=== PATIENT | male | born 1965 | race Caucasian/White ===

== ENCOUNTER 2016-09-07 14:31 | Emergency (ER) | payer OTHER ==
[~2016-09-07] VITALS: Ht 167.6 cm; Wt 90.0 kg
[~2016-09-07 14:31] MED LIST: LAMO100T PO; LAMO25TA PO
[2016-09-07 14:39] VITALS: BP 132/75; PULSE 74; RESP 18; TEMP 98.1; O2SAT 99
--- NOTE | 2016-09-07 14:46 | PD ---
HPI Chief Complaint: Pain: Acute or Chronic Time Seen by Provider: 14:46 Travel History International Travel<30 days: No Contact w/Intl Traveler<30days: No Traveled to known affect area: No History of Present Illness HPI 50-year-old male presents to emergency department for evaluation a right hand injury sustained after a trip and fall at school. Patient reports right fourth and fifth digit pain. He is right handed. Patient states the pain is constant , throbbing. Denies any alterations in sensation. Unable to flex the right fifth digit. Did not strike his head or lose consciousness. No other symptoms to report. PFSH Past Medical History Hx Anticoagulant Therapy: No Arthritis: No Asthma: No Blood Disorders: No Heart Rhythm Problems: Yes (FIRST DEGREE HEART BLOCK) Cancer: No Cardiovascular Problems: No Chemotherapy: No Chest Pain: Yes COPD: No Cerebrovascular Accident: No Diabetes: No Diminished Hearing: No Endocrine: No Genitourinary: No Headaches: Yes Hypertension: Yes Immune Disorder: No Musculoskeletal: Yes (left arm contracted) Neurologic: Yes (HYDROCEPHALUS) Psychiatric: No Reproductive: No Respiratory: No Radiation Therapy: No Seizures: Yes Sleep Apnea: No Past Surgical History Abdominal Surgery: No AICD: No Arteriovenous Shunt: No Body Medical Devices: VAGAL NERVE STIMULATOR Cardiac Surgery: Yes Genitourinary Surgery: No Gynecologic Surgery: No Hysterectomy: No Insulin Pump: No Joint Replacement: No Neurologic Surgery: Yes ([address] PRODUCTION MANAGER SHUNT, jun 2005-VAGUS NERVE STIMULATOR) Pacemaker: No Thoracic Surgery: No Other Surgery: Yes ([address] PRODUCTION MANAGER SHUNT 1980, HEEL CORD LENGHENING) Social History Alcohol Use: No Tobacco Use: No Substance Use: No Allergies-Medications (Allergen,Severity, Reaction): Coded Allergies: Cat Dander (Verified Adverse Reaction, Mild, Sneezing, 09/07/16) Dust (Verified Adverse Reaction, Mild, Sneezing, 09/07/16) Reported Meds & Prescriptions Reported Meds & Active Scripts Active Ibuprofen 600 Mg Tab 600 Mg PO Q8HR PRN Reported Tegretol (Carbamazepine) 200 Mg Tab 200 Mg PO BID Lamictal (Lamotrigine) 200 Mg Tab 200 Mg PO BID Review of Systems Except as stated in HPI: all other systems reviewed are Neg Physical Exam Narrative GENERAL: Well-nourished, male patient, ambulatory and in no acute distress SKIN: Warm and dry. HEAD: Normocephalic. EYES: No scleral icterus. No injection or drainage. NECK: Supple, trachea midline. No JVD or lymphadenopathy. CARDIOVASCULAR: Regular rate and rhythm without murmurs, gallops, or rubs. RESPIRATORY: Breath sounds equal bilaterally. No accessory muscle use. MUSCULOSKELETAL: No cyanosis. Moderate edema of the right fourth finger over the PIP. There is an obvious deformity of the right fifth PIP joint. Cap refill remains less than 3 seconds for the affected digits. 2. discrimination is intact distal affected digits. Data Data Last Documented VS Vital Signs Date Time Temp Pulse Resp B/P Pulse Ox O2 Delivery O2 Flow Rate FiO2 09/07/16 14:39 98.1 74 18 132/75 99 Orders Hand, Complete ([id number]) (09/07/16 ) Ibuprofen (Motrin) (09/07/16 15:00) Lidocaine 2% Inj (Xylocaine 2% Inj) (09/07/16 15:00) Bupivacaine Pf 0.5% Inj (Marcaine Pf 0.5 (09/07/16 15:00) Finger ([id number]) (09/07/16 ) Splint Or Brace Apply/Monitor (09/07/16 16:39) Finger Splint (09/07/16 ) MDM Medical Decision Making Medical Screen Exam Complete: Yes Emergency Medical Condition: Yes Medical Record Reviewed: Yes Differential Diagnosis Fracture versus dislocation versus contusion versus sprain Narrative Course 50-year-old male presents to the emergency department for evaluation of right fourth and fifth digit pain. There is bruising at the PIP of the right fourth digit. This is likely a finger sprain. Hand x-ray shows a dislocation of the right PIP. Last Impressions Hand X-Ray 09/07/16 0000 Signed Impressions: Service Date/Time: August 15:06 - CONCLUSION: Fifth finger PIP joint dislocation Jani Rasheed MD Finger X-Ray 09/07/16 0000 Signed Impressions: Service Date/Time: August 16:20 - CONCLUSION: Status post reduction of dislocated PIP joint. Nirav Momin MD Digital block of the right fifth digit is completely and reduction is successful. Patient is placed in a finger splint. Care. He Agrees to Return Immediately with Any Acute Worsening Symptoms. Procedures Procedure Narrative Verbal consent is obtained prior to procedure. The base of the finger was prepped with Betadine. 2% lidocaine without epinephrine and 0.5% bupivacaine was mixed at a 11 ratio with a total of 3 mL injected to the base of the right fifth digit. Anesthesia was achieved and the finger remained neurovascularly intact. Traction was placed on the distal finger and PIP was reduced without difficulty. Patient tolerated well. Diagnosis Primary Impression: Dislocation, finger, interphalangeal joint Qualified Code: S63.289A - Dislocation, finger, interphalangeal joint, initial encounter Additional Impressions: Finger sprain Qualified Code: S63.634A - Sprain of interphalangeal joint of right ring finger, initial encounter Injury of right hand Qualified Code: S69.91XA - Injury of right hand, initial encounter Referrals: Hand Surgeon Primary Care Physician Patient Instructions: Finger Dislocation (ED), General Instructions Additional Instructions: Ice and elevate to reduce pain Brace for support. He may take it off to shower Follow-up with a hand specialist Return immediately to the emergency department with any acute worsening symptoms Med/Other Pt SpecificInfo: Prescription(s) given Scripts Ibuprofen 600 Mg [id number] Mg PO Q8HR PRN (PAIN) #30 TAB Ref 0 Prov:Willow Quarles 09/07/16 Disposition: 01 DISCHARGE HOME Condition: Stable Willow Quarles Sep 07, 2016 14:46
[2016-09-07] MEDS ORDERED: LAMI200T PO (14:49)
[2016-09-07] MEDS ORDERED: TEGR200T PO (14:49)
[2016-09-07] MEDS ORDERED: IBUPROFEN 800 MG TAB PO ONE (15:00)
[2016-09-07] MEDS ORDERED: BUPIVACAINE HCL PF 0.5% 10 ML VIAL INFIL ONE (15:00)
[2016-09-07] MEDS ORDERED: LIDOCAINE HCL 2% 20 ML VIAL INFIL ONE (15:00)
[2016-09-07] MEDS ORDERED: IBUP-232 PO (15:59)
--- NOTE | 2016-09-07 16:14 | RADRPT ---
EXAM DATE/TIME: 09/07/2016 15:06 [facility] COMPARISON: No previous studies available for comparison. INDICATIONS : Right hand pain, fell down stairs today. MEDICAL HISTORY : Hypertension. SURGICAL HISTORY : Barber Stylist shunt, nerve stimulator ENCOUNTER: Initial ACUITY: 1 day PAIN SCORE: 8/10 LOCATION: Right Hand. FINDINGS: The fifth finger PIP joint is dislocated. No definite fracture is appreciated. The middle phalanx is displaced dorsally relative to the proximal phalanx with slight bayonet apposition also present. The hand is otherwise intact. CONCLUSION: Fifth finger PIP joint dislocation Jani Rasheed MD on September 07, 2016 at 16:11 Board Certified Radiologist. This report was verified electronically.
--- NOTE | 2016-09-07 17:05 | RADRPT ---
EXAM DATE/TIME: 09/07/2016 16:20 [facility] COMPARISON: HAND RIGHT COMPLETE ([id number]), September 07, 2016, 15:06. INDICATIONS : Post reduction. MEDICAL HISTORY : Hypertension. seizure disorder. SURGICAL HISTORY : vp customer development shunt ENCOUNTER: Subsequent ACUITY: 1 day PAIN SCORE: 6/10 LOCATION: Right fifth digit FINDINGS: Two-view examination of the 5th digit demonstrates realignment of the PIP joint. No fracture seen. No radiopaque foreign bodies. CONCLUSION: Status post reduction of dislocated PIP joint. Nirav Momin MD on September 07, 2016 at 17:03 Board Certified Radiologist. This report was verified electronically.
== END 2016-09-07 16:48 | disposition home or self-care (01) ==
LOC: NETRI 14:31
DX: S63.290A Dislocation of distal interphalangeal joint of right index finger, initial encounter (principal); S63.634A Sprain of interphalangeal joint of right ring finger, initial encounter; W10.9XXA Fall (on) (from) unspecified stairs and steps, initial encounter; Y93.9 Activity, unspecified; Y92.219 Unspecified school as the place of occurrence of the external cause; I10 Essential (primary) hypertension
CPT/HCPCS: 26770; 73130; 73140

== ENCOUNTER 2017-02-18 04:49 | Emergency (ER) | payer OTHER ==
[~2017-02-18] VITALS: Ht 167.6 cm; Wt 76.5 kg
[~2017-02-18 04:49] MED LIST changes: +IBUP-232 PO; +LAMI200T PO; -LAMO100T PO; -LAMO25TA PO; +TEGR200T PO
[2017-02-18 04:51] VITALS: BP 147/92; PULSE 99; RESP 18; TEMP 98.9; O2SAT 97
[2017-02-18] MEDS ORDERED: LAMO25 PO (05:07)
--- NOTE | 2017-02-18 05:11 | PD ---
HPI Chief Complaint: Fall Time Seen by Provider: 05:03 Travel History International Travel<30 days: No Contact w/Intl Traveler<30days: No Traveled to known affect area: No History of Present Illness HPI 51-year-old male with hydrocephalus with CHEMISTRY LECTURER shunt and seizure disorder presents to the emergency department from home by EMS transport for evaluation of head injury. According the patient just prior to arrival to the emergency department he had a trip and fall hitting the back of his head. Patient reports episode occurred approximately an hour prior to arrival to the emergency prior. Patient states he does not think he had loss of consciousness he wishes having difficulty finding his cell phone ordered and call 911. Patient does complain of posterior neck pain. Patient does not report any new upper or lower extremity numbness tingling or weakness. Patient has issues with gait at baseline and no new gait disturbance. Patient states he was up out of bed to take his medications which include Lamictal and tegretol. Patient does not report any medication noncompliance. Patient denies other injuries. Patient denies having seizure. PFSH Past Medical History Narrative Medical First-degree AV block vagal nerve stimulator CHEMISTRY LECTURER shunt hydrocephalus seizure disorder headaches hypertension Hx Anticoagulant Therapy: No Arthritis: No Asthma: No Blood Disorders: No Heart Rhythm Problems: Yes (FIRST DEGREE HEART BLOCK) Cancer: No Cardiovascular Problems: No Chemotherapy: No Chest Pain: Yes COPD: No Cerebrovascular Accident: No Diabetes: No Diminished Hearing: No Endocrine: No Genitourinary: No Headaches: Yes Hypertension: Yes Immune Disorder: No Musculoskeletal: Yes (left arm contracted) Neurologic: Yes (HYDROCEPHALUS) Psychiatric: No Reproductive: No Respiratory: No Radiation Therapy: No Seizures: Yes Sleep Apnea: No Past Surgical History Abdominal Surgery: No AICD: No Arteriovenous Shunt: No Body Medical Devices: VAGAL NERVE STIMULATOR Cardiac Surgery: Yes Genitourinary Surgery: No Gynecologic Surgery: No Hysterectomy: No Insulin Pump: No Joint Replacement: No Neurologic Surgery: Yes (2005 CHEMISTRY LECTURER SHUNT, jun 2005-VAGUS NERVE STIMULATOR) Pacemaker: No Thoracic Surgery: No Other Surgery: Yes (CHEMISTRY LECTURER SHUNT 1980, HEEL CORD LENGHENING) Social History Alcohol Use: No Tobacco Use: No Substance Use: No Allergies-Medications (Allergen,Severity, Reaction): Coded Allergies: Cat Dander (Verified Adverse Reaction, Mild, Sneezing, 02/18/17) Dust (Verified Adverse Reaction, Mild, Sneezing, 02/18/17) Reported Meds & Prescriptions Reported Meds & Active Scripts Active Reported Lamictal (Lamotrigine) 25 Mg Tab 50 Mg PO DAILY@0600 Lamictal (Lamotrigine) 200 Mg Tab 200 Mg PO BID Review of Systems Except as stated in HPI: all other systems reviewed are Neg General / Constitutional: No: Fever, Chills Eyes: No: Visual changes HENT: Positive: Headaches, Neck Pain, No: Lightheadedness, Congestion Cardiovascular: No: Chest Pain or Discomfort Respiratory: No: Shortness of Breath Gastrointestinal: No: Abdominal Pain Genitourinary: No: Flank Pain Musculoskeletal: No: Pain Skin: No Rash Neurologic: No: Weakness Psychiatric: No: Anxiety Endocrine: No: Heat Intolerance Hematologic/Lymphatic: No: Easy Bruising Physical Exam Narrative GENERAL: Well-developed well-nourished male in no acute distress no respiratory distress SKIN: Warm and dry. HEAD: Normocephalic. Left parietal scalp soft tissue swelling area of redness tenderness to palpation no bony step-off no abrasion or laceration EYES: No scleral icterus. No injection or drainage. Bilateral pupils equal round reactive to light extraocular muscles intact. ENT: Mucous membranes moist airway is patent no tongue trauma. NECK: Supple, trachea midline. No JVD or lymphadenopathy. Mild tenderness to right paracervical soft tissue no bony step-off to direct palpation along the cervical spine CARDIOVASCULAR: Regular rate and rhythm without murmurs, gallops, or rubs. RESPIRATORY: Breath sounds equal bilaterally. No accessory muscle use. GASTROINTESTINAL: Abdomen soft, non-tender, nondistended. MUSCULOSKELETAL: No cyanosis, or edema. BACK: Nontender without obvious deformity. No CVA tenderness. Data Data Last Documented VS Vital Signs Date Time Temp Pulse Resp B/P Pulse Ox O2 Delivery O2 Flow Rate FiO2 02/18/17 06:55 95 18 98 02/18/17 06:17 Room Air 02/18/17 04:51 98.9 147/[address] Brain W/O Iv Contrast(Rout) (02/18/17 ) Ct Cerv Spine W/O Contrast (02/18/17 ) Shunt Series (02/18/17 ) MDM Medical Decision Making Medical Screen Exam Complete: Yes Emergency Medical Condition: Yes Medical Record Reviewed: Yes Interpretation(s) CT brain w/o: FINDINGS: There is no evidence of acute cortical infarction, acute hemorrhage, mass effect or midline shift. A shunt is entering the right parietal region with its tip in the body of the left lateral ventricle. 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 Posterior fossa structures are unremarkable. CONCLUSION: 1. No evidence of acute intracranial pathology. No masses are identified. 2. Stable ventricular size Loy Troncoso MD on February 18, 2017 at 5:52 Board Certified Radiologist. This report was verified electronically. CT cerv spine w/o: CONCLUSION: 1. There is no evidence of acute fracture. 2. Degenerative disc disease maximal at C6-C7 Loy Troncoso MD on February 18, 2017 at 5:54 Board Certified Radiologist. This report was verified electronically. Shunt series: Intact that per reading radiologist Dr. Troncoso. Differential Diagnosis Minor closed head injury, ICH, shunt displacement, concussion, cervical spine sprain strain Narrative Course Imaging studies ordered ice pack applied Imaging studies revealed no acute abnormality secondary to fall. Patient is stable to return to his residence. Diagnosis Primary Impression: Minor closed head injury Additional Impression: History of seizure Referrals: Primary Care Physician call for appointment Patient Instructions: General Instructions Additional Instructions: Apply ice intermittently to soft tissue swelling of had Follow-up with your primary care provider call office in a.m. to schedule follow -up appointment Return to the emergency department for any concerns or change in condition To take ibuprofen/Advil/Motrin every 6-8 hours per package instructions for fever 100.4F or greater or for pain associated with inflammation May take acetaminophen/Tylenol every 4-6 hours as needed for fever 100.4F or greater Return to the emergency department for any concerns or change in condition Disposition: 01 DISCHARGE HOME Condition: Stable Grazyna Umanzor MD Feb 18, 2017 05:11
--- NOTE | 2017-02-18 05:56 | RADRPT ---
EXAM DATE/TIME: 02/18/2017 05:05 [facility] COMPARISON: CT BRAIN W/O CONTRAST, January 30, 2016, 9:36. INDICATIONS : Headache status post fall RADIATION DOSE: 62.31 CTDIvol (mGy) MEDICAL HISTORY : Hypertension. Hydrocephalus SURGICAL HISTORY : None. Vagal nerve stimulator, BOBBIN WINDER TENDER shunt ENCOUNTER: Initial ACUITY: 1 day PAIN SCALE: 4/10 LOCATION: cranial TECHNIQUE: Multiple contiguous axial images were obtained of the head. Using automated exposure control and adj ustment of the mA and/or kV according to patient size, radiation dose was kept as low as reasonably a chievable to obtain optimal diagnostic quality images. DICOM format image data is available electro nically for review and comparison. FINDINGS: There is no evidence of acute cortical infarction, acute hemorrhage, mass effect or midline shift. A shunt is entering the right parietal region with its tip in the body of the left lateral ventricle. T here is agenesis of the corpus callosum with a colpocephalic appearance to the lateral ventricles. Po sterior fossa structures are unremarkable. CONCLUSION: 1. No evidence of acute intracranial pathology. No masses are identified. 2. Stable ventricular size Loy Troncoso MD on February 18, 2017 at 5:52 Board Certified Radiologist. This report was verified electronically.
--- NOTE | 2017-02-18 05:59 | RADRPT ---
EXAM DATE/TIME: 02/18/2017 05:05 [facility] COMPARISON: No previous studies available for comparison. INDICATIONS : Headache status post fall RADIATION DOSE: 26.85 CTDIvol (mGy) MEDICAL HISTORY : Hypertension. 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 Multiplanar reconstructions in the sagittal, coronal and oblique axial planes were performed. Using automated exposure control and adjustment o f the mA and/or kV according to patient size, radiation dose was kept as low as reasonably achievable to obtain optimal diagnostic quality images. DICOM format image data is available electronically f or review and comparison. FINDINGS: Sagittal images demonstrate normal vertebral body alignment and curvature. The odontoid is intact. Th e occipital condyles and lateral masses of C1 are intact. Axial images were performed from C2-C3 to C7-T1. There is multilevel disc space narrowing and marginal osteophyte formation maximal at C6-C7. C2-C3: No significant abnormalities identified. C3-C4: There is osteophytic ridging along the posterior aspect of vertebral body. There is no significant sp inal canal stenosis. C4-C5: There is osteophytic ridging asymmetric to the right. The neural foramina are clear bilaterally. C5-C6: No significant abnormalities identified. C6-C7: There is broad-based annular bulge of disc. There is uncovertebral joint hypertrophy bilaterally. The re is moderate neural foraminal narrowing bilaterally. C7-T1: No significant abnormalities identified. CONCLUSION: 1. There is no evidence of acute fracture. 2. Degenerative disc disease maximal at C6-C7 Loy Troncoso MD on February 18, 2017 at 5:54 Board Certified Radiologist. This report was verified electronically.
[2017-02-18 06:17] VITALS: PULSE 98; RESP 18; O2SAT 98
--- NOTE | 2017-02-18 06:50 | RADRPT ---
EXAM DATE/TIME: 02/18/2017 05:32 [facility] COMPARISON: No previous studies available for comparison. INDICATIONS : Fall. MEDICAL HISTORY : Hypertension. Epilepsy, seizures. SURGICAL HISTORY : Right LITHOGRAPHY CONTACT WORKER shunt, Sylvain nerve stimulator. ENCOUNTER: Initial ACUITY: 1 day PAIN SCORE: 7/10 LOCATION: posterior skull FINDINGS: Radiograph of the skull, neck, chest and abdomen performed to evaluate shunt patency. The shunt cath eter is seen entering the left parietal region with its tip in the region of the body of the right la teral ventricle. There is calcification in the right neck from a previous shunt and a pulse generator for vagal nerve stimulation in the left neck. The catheter is continuous in its course terminating in the right lower quadrant No catheter disrupti on is identified. The visualized heart, lungs and abdominal structures are intact. CONCLUSION: Intact shunt. Loy Troncoso MD on February 18, 2017 at 6:48 Board Certified Radiologist. This report was verified electronically.
--- NOTE | 2017-02-18 18:04 | HHI.HP ---
[facility] Service Critical Care Medicine Primary Care Physician Titus Ornelas MD Admission Diagnosis Diagnosis: Travel History International Travel<30 Days: No Contact w/Intl Traveler <30 Da: No Traveled to Known Affected Are: No History of Present Illness 51-year-old male with hydrocephalus with VISUAL TRAINING AIDE shunt and seizure disorder presents to the emergency department from home by EMS transport to [place] for evaluation of head injury at 4 am. According the patient just prior to arrival to the emergency department he had a trip and fall hitting the back of his head. Patient reported in [place] that the episode occurred approximately an hour prior to arrival to the emergency prior. Patient stated that at that time he did not think he had loss of consciousness. Patient did complain of posterior neck pain at that time. Patient did not report any new upper or lower extremity numbness tingling or weakness at that time. Patient has baseline issues with gait at baseline and had no new gait disturbance. Patient states he was up out of bed to take his medications which include Lamictal and tegretol. Patient does not report any medication noncompliance. Patient denied other injuries. Patient denies having seizures. This afternoon the patient was noted to be completely unresponsive and EMS was called, the patient was transferred emergently to [facility] and evaluated per ED. The patient was noted to have corneal reflex, gag reflex, good muscle tone, adequate spontaneous respirations but completely unresponsive. CT of the head was again performed and a shunt study which were normal. Critical care medicine was consulted. Neurology consulted, Dr. Herndon and notified per Dr. Mi, stat EEG, Lacmictal level, and stat MRA, MRI of brain and neck were ordered. Concern for ability to perform MRA/ MRI 2/2 vagal nerve stimulator. Plan for CTV and CTA of brain and cervical spine. Ultimately attempts at placing a Madrid catheter unsuccessful, urology consulted for placement. History PFSH Past Medical History Narrative Medical First-degree AV block vagal nerve stimulator VISUAL TRAINING AIDE shunt hydrocephalus seizure disorder headaches hypertension Hx Anticoagulant Therapy: No Arthritis: No Asthma: No Blood Disorders: No Heart Rhythm Problems: Yes (FIRST DEGREE HEART BLOCK) Cancer: No Cardiovascular Problems: No Chemotherapy: No Chest Pain: Yes COPD: No Cerebrovascular Accident: No Diabetes: No Diminished Hearing: No Endocrine: No Genitourinary: No Headaches: Yes Hypertension: Yes Immune Disorder: No Musculoskeletal: Yes (left arm contracted) Neurologic: Yes (HYDROCEPHALUS) Psychiatric: No Reproductive: No Respiratory: No Radiation Therapy: No Seizures: Yes Sleep Apnea: No Past Surgical History Abdominal Surgery: No AICD: No Arteriovenous Shunt: No Body Medical Devices: VAGAL NERVE STIMULATOR Cardiac Surgery: Yes Genitourinary Surgery: No Gynecologic Surgery: No Hysterectomy: No Insulin Pump: No Joint Replacement: No Neurologic Surgery: Yes (2005 VISUAL TRAINING AIDE SHUNT, jun 2005-VAGUS NERVE STIMULATOR) Pacemaker: No Thoracic Surgery: No Other Surgery: Yes (VISUAL TRAINING AIDE SHUNT 1980, HEEL CORD LENGHENING) Social History Alcohol Use: No Tobacco Use: No Substance Use: No Allergies-Medications Allergies-Medications (Allergen,Severity, Reaction): Coded Allergies: Cat Dander (Verified Adverse Reaction, Mild, Sneezing, 02/18/17) Dust (Verified Adverse Reaction, Mild, Sneezing, 02/18/17) Reported Meds & Prescriptions Reported Meds & Active Scripts Active Reported Lamictal (Lamotrigine) 25 Mg Tab 50 Mg PO DAILY@0600 Lamictal (Lamotrigine) 200 Mg Tab 200 Mg PO BID Review of Systems ROS Limitations: Clinical Condition Past Family Social History Allergies: Coded Allergies: Cat Dander (Verified Adverse Reaction, Mild, Sneezing, 02/18/17) Dust (Verified Adverse Reaction, Mild, Sneezing, 02/18/17) Active Ordered Medications see [facility] Family History see [facility] Physical Exam Vital Signs Vital Signs Date Time Temp Pulse Resp B/P Pulse Ox O2 Delivery O2 Flow Rate FiO2 02/18/17 06:55 95 18 98 02/18/17 06:17 98 18 98 Room Air 02/18/17 04:51 98.9 99 18 147/92 97 Physical Exam GENERAL: Completely obtunded and nonresponsive patient GCS 3. SKIN: Warm and dry. HEAD: Atraumatic. Normocephalic. EYES: Pupils equal and round. No scleral icterus. No injection or drainage. ENT: No nasal bleeding or discharge. Mucous membranes pink and moist. NECK: Trachea midline. No JVD. CARDIOVASCULAR: Normal rate, regular rhythm. RESPIRATORY: No accessory muscle use. Clear to auscultation. Breath sounds equal bilaterally. GASTROINTESTINAL: Abdomen soft, non-tender, nondistended. No guarding. MUSCULOSKELETAL: Extremities without clubbing, cyanosis, or edema. No obvious deformities. NEUROLOGICAL: GCS 3. Positive gag reflex, positive lid reflex. Negative Babinski. Imaging Last Impressions Shunt Study (Imaging) 02/18/17 0000 Signed Impressions: Service Date/Time: Saturday, February 18, 2017 05:32 - CONCLUSION: Intact shunt. Loy Troncoso MD Head CT 02/18/17 0000 Signed Impressions: Service Date/Time: Saturday, February 18, 2017 05:05 - CONCLUSION: 1. No evidence of acute intracranial pathology. No masses are identified. 2. Stable ventricular size Loy Troncoso MD Cervical Spine CT 02/18/17 0000 Signed Impressions: Service Date/Time: Saturday, February 18, 2017 05:05 - CONCLUSION: 1. There is no evidence of acute fracture. 2. Degenerative disc disease maximal at C6-C7 Loy Troncoso MD Septic Shock Reassessment Heart: Regular rate and rhythm Lungs: Clear Skin: Warm Peripheral Pulses: Bounding Right Radial Bounding Left Radial Bounding Right Dorsalis Pedis Bounding Left Dorsalis Pedis Assessment and Plan Assessment and Plan Assessment History of hydrocephalus VISUAL TRAINING AIDE shunt (2005) Status post fall-TBI? Seizure disorder Toxic encephalopathy? Plan Plan by systems: Neurologic: -Neurochecks per ICU protocol -Obtain stat EEG -Neurology consultDr. Herndon, notified by Dr. Mi -02/18 CT brain without contrast-no acute disease, no midline shift -02/18 shunt studies-within normal limits -Obtain MRA/MRI stat, compatible with vagal nerve stimulator. Obtain CTV, CTA brain if unable to obtain MRA /MRI -Follow-up Lamictal levels obtain Tegretol levels -UDS [id number] results -Consider lumbar puncture Respiratory: -Currently O2 at 2 L -Plan for possible intubation to protect airway -Maintain head of bed 30 Cardiovascular: -Vagal nerve stimulator in situ -Obtain stat EKG Renal: -Urology consult- insert Madrid -- Strict I/Os FEN/GI: Monitor BMP Maintain Nothing by mouth status Zofran for nausea Pepcid for prophylaxis Heme/ID: Monitor CBC Obtain urine culture Obtain PT/INR Endocrine: Glucose monitoring per ICU protocol -- SSI Prophylaxis: GI Prophylaxis Pepcid twice a day DVT Prophylaxis -- SCDs Hold pharmacological DVT prophylaxis for possible lumbar puncture Lines: Peripheral IVs 2. Central line if indicated Dispo: This patient remains critically ill with one or more organ systems which are or may become a threat to life. I have spent in excess of 30 minutes discontinuously in the care and management of this patient. This time is exclusive of procedures, and includes, but is not limited to, evaluation of the patient, review of the medical record, discussions with family, consultants, nursing staff, or respiratory therapy, and documentation in the medical record. Code Status Full Discussed Condition With Dr. Mi, Regina Felipe RN, MD Feb 18, 2017 18:04
[2017-02-18] MEDS ORDERED: DEXTROSE 50% IN WATER 50 ML VIAL(D50) IV PRN (18:15)
[2017-02-18] MEDS ORDERED: GLUCAGON 1 MG/ML VIAL OTHER PRN (18:15)
[2017-02-18] MEDS ORDERED: INSULIN ASPART SUPPLEMENTAL SCALE SQ SCH (21:00)
== END 2017-02-18 07:17 | disposition home or self-care (01) ==
LOC: PHED 04:49
DX: S09.90XA Unspecified injury of head, initial encounter (principal); G91.9 Hydrocephalus, unspecified; G40.909 Epilepsy, unspecified, not intractable, without status epilepticus; I10 Essential (primary) hypertension; I44.0 Atrioventricular block, first degree; Z79.899 Other long term (current) drug therapy; Z98.2 Presence of cerebrospinal fluid drainage device; W01.0XXA Fall on same level from slipping, tripping and stumbling without subsequent striking against object, initial encounter; Y92.009 Unspecified place in unspecified non-institutional (private) residence as the place of occurrence of the external cause
CPT/HCPCS: 70250; 70450; 71010; 72040; 72125; 74000

== ENCOUNTER 2017-02-18 14:00 | Inpatient (IN) | payer OTHER, MEDICARE ==
[~2017-02-18] VITALS: Ht 167.6 cm; Wt 80.5 kg
[~2017-02-18 14:00] MED LIST changes: +LAMO25 PO
[2017-02-18 14:10] VITALS: BP 153/91; PULSE 106; RESP 18; TEMP 98.5; O2SAT 96
[2017-02-18 14:19] VITALS: BP 153/91; PULSE 106; RESP 19; TEMP 98.5; O2SAT 97
[2017-02-18 14:24] VITALS: BP 153/91; PULSE 106; RESP 19; TEMP 98.5; O2SAT 97
--- NOTE | 2017-02-18 14:40 | PD ---
HPI Chief Complaint: Altered Mental Status Time Seen by Provider: 14:33 Travel History International Travel<30 days: No Contact w/Intl Traveler<30days: No Traveled to known affect area: No History of Present Illness HPI 51-year-old male that presents to the ED for evaluation of what appears to be altered mental status. Patient apparently was seen earlier today at [facility] for evaluation of a fall. Patient has a history of hydrocephalus with a shunt as well as seizure disorder. Apparently he had imaging and scans don't show no sign of acute disease. Patient was released and apparently at the time he was at baseline. Patient was released with family today and had no issues until after he took a nap he became more lethargic. He will not open his eyes and he will not follow commands per ambulance report. Examination is limited because patient will not really talk to me and he will not cooperate. He does appear to be able to move his mouth on command and does appear to react to painful stimuli. Otherwise patient has no other symptoms. I am able to open his eyes and there is seems to be some resistance from the patient. I am also able to move his arms and legs and there seems to be some resistance. Patient does have some chronic deficits to the left side which appear to be old. No numbness, tingling, weakness. Again history is limited. No obvious sign of fever. PFSH Past Medical History Hx Anticoagulant Therapy: No Arthritis: No Asthma: No Blood Disorders: No Heart Rhythm Problems: Yes (FIRST DEGREE HEART BLOCK) Cancer: No Cardiovascular Problems: Yes Chemotherapy: No Chest Pain: Yes COPD: No Cerebrovascular Accident: No Diabetes: No Diminished Hearing: No Endocrine: No Genitourinary: No Headaches: Yes Hypertension: Yes Immune Disorder: No Musculoskeletal: Yes (left arm contracted) Neurologic: Yes (HYDROCEPHALUS) Psychiatric: No Reproductive: No Respiratory: No Radiation Therapy: No Seizures: Yes Sleep Apnea: No Tetanus Vaccination: Unknown Past Surgical History Abdominal Surgery: No AICD: No Arteriovenous Shunt: No Body Medical Devices: VAGAL NERVE STIMULATOR Cardiac Surgery: Yes Genitourinary Surgery: No Gynecologic Surgery: No Hysterectomy: No Insulin Pump: No Joint Replacement: No Neurologic Surgery: Yes (2005 OPHTHALMOLOGY SURGICAL TECHNICIAN SHUNT, jun 2005-VAGUS NERVE STIMULATOR) Pacemaker: Yes Thoracic Surgery: No Other Surgery: Yes (OPHTHALMOLOGY SURGICAL TECHNICIAN SHUNT 1980, HEEL CORD LENGHENING) Social History Alcohol Use: No Tobacco Use: No Substance Use: No Allergies-Medications (Allergen,Severity, Reaction): Coded Allergies: Cat Dander (Verified Adverse Reaction, Mild, Sneezing, 02/18/17) Dust (Verified Adverse Reaction, Mild, Sneezing, 02/18/17) Reported Meds & Prescriptions Reported Meds & Active Scripts Active Reported Lamictal (Lamotrigine) 25 Mg Tab 50 Mg PO DAILY@0600 Lamictal (Lamotrigine) 200 Mg Tab 200 Mg PO BID Review of Systems ROS Limitations: Altered Mental Status, Poor Historian Except as stated in HPI: all other systems reviewed are Neg Physical Exam Exam Limitations: Altered Mental Status, Poor Historian Narrative GENERAL: SKIN: Warm and dry. HEAD: Atraumatic. Normocephalic. EYES: Pupils equal and round 4 mm reactive to light and accommodation. No scleral icterus. No injection or drainage. EOM appeared to be intact. Patient does appear to resist my opening his eyes. I'm able to open them however. ENT: No nasal bleeding or discharge. Mucous membranes pink and moist. Tongue appears to be midline. No blood deviation. Patient appears to open his mouth to command. NECK: Trachea midline. No JVD. CARDIOVASCULAR: Regular rate and rhythm. No murmurs, S3, S4. RESPIRATORY: No accessory muscle use. Clear to auscultation. Breath sounds equal bilaterally. GASTROINTESTINAL: Abdomen soft, non-tender, nondistended. Hepatic and splenic margins not palpable. MUSCULOSKELETAL: Extremities without clubbing, cyanosis, or edema. No obvious deformities. Patient does have muscle tone deficits on the left side compared to the right. No obvious cervical, thoracic, lumbar spine tenderness to palpation. 2+ pulses bilaterally. NEUROLOGICAL: Seemingly unresponsive but protecting airway. No obvious cranial nerve deficits. Motor grossly within normal limits. Five out of 5 muscle strength in the arms and legs. Normal speech. PSYCHIATRIC: Altered mood and affect; insight and judgment unable to assess. Data Data Last Documented VS Vital Signs Date Time Temp Pulse Resp B/P Pulse Ox O2 Delivery O2 Flow Rate FiO2 02/18/17 14:24 98.5 106 19 153/91 97 Room Air Orders Electrocardiogram (02/18/17 14:18) Complete Blood Count With Diff (02/18/17 14:18) Comprehensive Metabolic Panel (02/18/17 14:18) Ckmb (Isoenzyme) Profile (02/18/17 14:18) Troponin I (02/18/17 14:18) Prothrombin Time / Inr (Pt) (02/18/17 14:18) Act Partial Throm Time (Ptt) (02/18/17 14:18) Blood Culture (02/18/17 14:18) Urinalysis - C+S If Indicated (02/18/17 14:18) Magnesium (Mg) (02/18/17 14:18) Thyroid Stimulating Hormone (02/18/17 14:18) Chest, Single Ap (02/18/17 14:18) Ct Brain W/O Iv Contrast(Rout) (02/18/17 14:18) Iv Access Insert/Monitor (02/18/17 14:18) Ecg Monitoring (02/18/17 14:18) Oximetry (02/18/17 14:18) Shunt Series (02/18/17 ) Lamictal (Lamotrigine) (02/18/17 14:37) Lidocaine 2% Jelly (Xylocaine 2% Jelly) (02/18/17 15:15) Lactic Acid (02/18/17 15:34) CKMB (02/18/17 14:30) CKMB% (02/18/17 14:30) Admit Order (Ed Use Only) (02/18/17 17:19) Labs Laboratory Tests Test 02/18/17 02/18/17 14:30 15:10 White Blood Count 7.5 TH/MM3 Red Blood Count 4.52 MIL/MM3 Hemoglobin 13.9 GM/DL Hematocrit 40.6 % Mean Corpuscular Volume 89.8 FL Mean Corpuscular Hemoglobin 30.8 PG Mean Corpuscular Hemoglobin 34.3 % Concent Red Cell Distribution Width 13.2 % Platelet Count 238 TH/MM3 Mean Platelet Volume 8.3 FL Neutrophils (%) (Auto) 72.6 % Lymphocytes (%) (Auto) 17.7 % Monocytes (%) (Auto) 8.7 % Eosinophils (%) (Auto) 0.6 % Basophils (%) (Auto) 0.4 % Neutrophils # (Auto) 5.5 TH/MM3 Lymphocytes # (Auto) 1.3 TH/MM3 Monocytes # (Auto) 0.7 TH/MM3 Eosinophils # (Auto) 0.0 TH/MM3 Basophils # (Auto) 0.0 TH/MM3 CBC Comment DIFF FINAL Differential Comment Prothrombin Time 10.8 SEC Prothromb Time International 1.0 RATIO Ratio Activated Partial 23.9 SEC Thromboplast Time Sodium Level 141 MEQ/L Potassium Level 3.1 MEQ/L Chloride Level 106 MEQ/L Carbon Dioxide Level 24.6 MEQ/L Anion Gap 10 MEQ/L Blood Urea Nitrogen 12 MG/DL Creatinine 0.87 MG/DL Estimat Glomerular Filtration 93 ML/MIN Rate Random Glucose 84 MG/DL Calcium Level 8.7 MG/DL Magnesium Level 2.1 MG/DL Total Bilirubin 0.3 MG/DL Aspartate Amino Transf 11 U/L (AST/SGOT) Alanine Aminotransferase 18 U/L (ALT/SGPT) Alkaline Phosphatase 74 U/L Total Creatine Kinase 165 U/L Creatine Kinase MB 2.2 NG/ML Troponin I LESS THAN 0.02 NG/ML Total Protein 8.2 GM/DL Albumin 3.7 GM/DL Thyroid Stimulating Hormone 1.940 uIU/ML 3rd Gen Lactic Acid Level 0.7 mmol/L MDM Medical Decision Making Medical Screen Exam Complete: Yes Emergency Medical Condition: Yes Medical Record Reviewed: Yes Interpretation(s) CBC & BMP Diagram 02/18/17 14:30 lfts WNL coags WNL Last Impressions Head CT 02/18/17 1418 Signed Impressions: Service Date/Time: Saturday, February 18, 2017 15:39 - CONCLUSION: 1. No acute findings. Stable ventricular size. Rashid Hogue MD Chest X-Ray 02/18/17 1418 Signed Impressions: Service Date/Time: Saturday, February 18, 2017 15:07 - CONCLUSION: No evidence of acute cardiopulmonary disease. Jani Arias MD Shunt Study (Imaging) 02/18/17 0000 Signed Impressions: Service Date/Time: Saturday, February 18, 2017 15:07 - CONCLUSION: Intact shunt. Jani Arias MD EKG shows sinus rhythm with no sign of acute ischemia or arryhtmia. Read by me and attending Troponin and CKMB negative Differential Diagnosis Altered mental status versus head injury versus seizure versus head injury versus hydrocephalus Narrative Course 51-year-old male that presents to the ED for evaluation of possible altered mental status. Patient was properly examined and was found to have signs and symptoms very consistent with possible altered mental status. My attending Dr. Garnett evaluated the patient he agrees the patient is somewhat difficult to assess and it's unclear if patient is actively resisting or he is having some sort of alteration. Patient was seen earlier today and was at baseline. He did suffer a head injury for which she was evaluated and had imaging that was negative. My attending recommends workup for altered mental status including head CT as well as redo of the shunt studies. Labs and imaging were ordered. IV was started. Labs and imaging here showed no sign of acute disease. Patient still altered. Family came and gave him was the same story. Unclear as to the etiology. My attending Dr. Mi took over the case and admitted the patient to the international trade specialist. Diagnosis Primary Impression: Altered mental status Qualified Code: R40.1 - Stupor Admitting Information Admitting Physician Requests: Admit Yaya Borges Feb 18, 2017 14:40 Yaya Borges Feb 18, 2017 14:40
[2017-02-18] MEDS ORDERED: LIDOCAINE 2% JELLY 30 ML TUBE TOPICAL ONE (15:15)
--- NOTE | 2017-02-18 15:46 | RADRPT ---
EXAM DATE/TIME: 02/18/2017 15:07 [facility] COMPARISON: No previous studies available for comparison. INDICATIONS : Shortness of breath. Patient has become unresponsive. MEDICAL HISTORY : Hypertension. Epilepsy, seizures. SURGICAL HISTORY : Right ANALYTICAL MANAGER shunt, Sylvain nerve stimulator. ENCOUNTER: Initial ACUITY: 1 day PAIN SCORE: Non-responsive. LOCATION: Bilateral chest FINDINGS: A single view of the chest demonstrates the lungs to be symmetrically aerated without evidence of mas s, infiltrate or effusion. The cardiomediastinal contours are unremarkable. Osseous structures are intact. CONCLUSION: No evidence of acute cardiopulmonary disease. Jani Arias MD on February 18, 2017 at 15:44 Board Certified Radiologist. This report was verified electronically.
--- NOTE | 2017-02-18 15:50 | RADRPT ---
EXAM DATE/TIME: 02/18/2017 15:07 [facility] COMPARISON: SHUNT SERIES, February 18, 2017, 5:32. INDICATIONS : Patient became unresponsive. MEDICAL HISTORY : Hypertension. Epilepsy, seizures. SURGICAL HISTORY : Right PORTRAIT STUDIO PHOTOGRAPHER shunt, vagus nerve stimulator. ENCOUNTER: Subsequent ACUITY: 1 day PAIN SCORE: Non-responsive. LOCATION: From skull to bladder. FINDINGS: Ventriculoperitoneal shunt catheter enters the skull right parietal. The shunt is intact. The tip is in the right lower quadrant of the peritoneal cavity. An old, abandoned catheter is again seen. CONCLUSION: Intact shunt. Jani Arias MD on February 18, 2017 at 15:46 Board Certified Radiologist. This report was verified electronically.
--- NOTE | 2017-02-18 15:59 | RADRPT ---
EXAM DATE/TIME: 02/18/2017 15:39 [facility] COMPARISON: CT BRAIN W/O CONTRAST, February 18, 2017, 5:05. INDICATIONS : Altered mental status. RADIATION DOSE: 32.05 CTDIvol (mGy) MEDICAL HISTORY : Cardiovascular disease. Seizures. Hypertension.TBI SURGICAL HISTORY : Pacemaker. Shunt placement ENCOUNTER: Initial ACUITY: 1 day PAIN SCALE: Non-responsive LOCATION: cranial TECHNIQUE: Multiple contiguous axial images were obtained of the head. Using automated exposure control and adj ustment of the mA and/or kV according to patient size, radiation dose was kept as low as reasonably a chievable to obtain optimal diagnostic quality images. DICOM format image data is available electro nically for review and comparison. FINDINGS: A shunt is present in the right parietal region with its tip in the body of the left lateral ventricl e. 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 Posterior fo ssa structures unremarkable. No mass, hemorrhage or midline shift. No recent infarct identified. Stab le ventricular size. CONCLUSION: 1. No acute findings. Stable ventricular size. Rashid Hogue MD on February 18, 2017 at 15:55 Board Certified Radiologist. This report was verified electronically.
[2017-02-18 16:19] LABS: AUTOMATED NEUTROPHIL # 5.5 TH/MM3 (1.8-7.7); BASOPHIL % 0.4 % (0.0-2.0); EOSINOPHIL % 0.6 % (0.0-4.0); HEMATOCRIT 40.6 % (39.0-51.0); HEMO FLAGS DIFF FINAL; LYMPH % 17.7 % (9.0-44.0); LYMPHOCYTE # 1.3 TH/MM3 (1.0-4.8); MEAN CELL VOLUME 89.8 FL (80.0-100.0); MEAN CORPUSCULAR HEMOGLOBIN 30.8 PG (27.0-34.0); MEAN CORPUSCULAR HGB CONC 34.3 % (32.0-36.0); MONO % 8.7 % (0.0-8.0); NEUT % 72.6 % (16.0-70.0); PLATELET COUNT 238 TH/MM3 (150-450); RED BLOOD COUNT 4.52 MIL/MM3 (4.50-5.90); RED CELL DISTRIBUTION WIDTH 13.2 % (11.6-17.2); WHITE BLOOD COUNT 7.5 TH/MM3 (4.0-11.0)
[2017-02-18 16:28] LABS: APTT (PATIENT) 23.9 SEC (24.3-30.1); PROTHROMBIN TIME - PATIENT 10.8 SEC (9.8-11.6)
--- NOTE | 2017-02-18 16:34 | PD ---
Physical Exam Narrative Patient was seen and examined with my benefits assistant. Patient lying in bed with eyes closed. Attempts open eye was somewhat resistant. Pupils 3 mm equal reactive. No neck stiffness. Patient does not move any extremity on command. Deep tendon reflex 1+ and equal. Negative Babinski. Patient does not respond to command. Patient does not respond to painful stimuli. Gag reflex intact. Patient closed the mouth tightly if I try to put a tongue blade inside his mouth. Data Data Last Documented VS Vital Signs Date Time Temp Pulse Resp B/P Pulse Ox O2 Delivery O2 Flow Rate FiO2 02/18/17 14:24 98.5 106 19 153/91 97 Room Air Orders Electrocardiogram (02/18/17 14:18) Complete Blood Count With Diff (02/18/17 14:18) Comprehensive Metabolic Panel (02/18/17 14:18) Ckmb (Isoenzyme) Profile (02/18/17 14:18) Troponin I (02/18/17 14:18) Prothrombin Time / Inr (Pt) (02/18/17 14:18) Act Partial Throm Time (Ptt) (02/18/17 14:18) Blood Culture (02/18/17 14:18) Urinalysis - C+S If Indicated (02/18/17 14:18) Magnesium (Mg) (02/18/17 14:18) Thyroid Stimulating Hormone (02/18/17 14:18) Chest, Single Ap (02/18/17 14:18) Ct Brain W/O Iv Contrast(Rout) (02/18/17 14:18) Iv Access Insert/Monitor (02/18/17 14:18) Ecg Monitoring (02/18/17 14:18) Oximetry (02/18/17 14:18) Shunt Series (02/18/17 ) Lamictal (Lamotrigine) (02/18/17 14:37) Lidocaine 2% Jelly (Xylocaine 2% Jelly) (02/18/17 15:15) Lactic Acid (02/18/17 15:34) CKMB (02/18/17 14:30) CKMB% (02/18/17 14:30) Admit Order (Ed Use Only) (02/18/17 17:19) Labs Laboratory Tests Test 02/18/17 02/18/17 14:30 15:10 White Blood Count 7.5 TH/MM3 Red Blood Count 4.52 MIL/MM3 Hemoglobin 13.9 GM/DL Hematocrit 40.6 % Mean Corpuscular Volume 89.8 FL Mean Corpuscular Hemoglobin 30.8 PG Mean Corpuscular Hemoglobin 34.3 % Concent Red Cell Distribution Width 13.2 % Platelet Count 238 TH/MM3 Mean Platelet Volume 8.3 FL Neutrophils (%) (Auto) 72.6 % Lymphocytes (%) (Auto) 17.7 % Monocytes (%) (Auto) 8.7 % Eosinophils (%) (Auto) 0.6 % Basophils (%) (Auto) 0.4 % Neutrophils # (Auto) 5.5 TH/MM3 Lymphocytes # (Auto) 1.3 TH/MM3 Monocytes # (Auto) 0.7 TH/MM3 Eosinophils # (Auto) 0.0 TH/MM3 Basophils # (Auto) 0.0 TH/MM3 CBC Comment DIFF FINAL Differential Comment Prothrombin Time 10.8 SEC Prothromb Time International 1.0 RATIO Ratio Activated Partial 23.9 SEC Thromboplast Time Sodium Level 141 MEQ/L Potassium Level 3.1 MEQ/L Chloride Level 106 MEQ/L Carbon Dioxide Level 24.6 MEQ/L Anion Gap 10 MEQ/L Blood Urea Nitrogen 12 MG/DL Creatinine 0.87 MG/DL Estimat Glomerular Filtration 93 ML/MIN Rate Random Glucose 84 MG/DL Calcium Level 8.7 MG/DL Magnesium Level 2.1 MG/DL Total Bilirubin 0.3 MG/DL Aspartate Amino Transf 11 U/L (AST/SGOT) Alanine Aminotransferase 18 U/L (ALT/SGPT) Alkaline Phosphatase 74 U/L Total Creatine Kinase 165 U/L Creatine Kinase MB 2.2 NG/ML Troponin I LESS THAN 0.02 NG/ML Total Protein 8.2 GM/DL Albumin 3.7 GM/DL Thyroid Stimulating Hormone 1.940 uIU/ML 3rd Gen Lactic Acid Level 0.7 mmol/L [facility] Supervised Visit with MASON: Yes Interpretation(s) Last Impressions Head CT 02/18/171417 Signed Impressions: Service Date/Time: Saturday, February 18, 2017 15:39 - CONCLUSION: 1. No acute findings. Stable ventricular size. Rashid Hogue MD Chest X-Ray 02/18/171417 Signed Impressions: Service Date/Time: Saturday, February 18, 2017 15:07 - CONCLUSION: No evidence of acute cardiopulmonary disease. Jani Arias MD Shunt Study (Imaging) 02/18/17 0000 Signed Impressions: Service Date/Time: Saturday, February 18, 2017 15:07 - CONCLUSION: Intact shunt. Jani Arias MD 1700 p.m. CBC within normal limit. CMP within normal limit. Potassium 3.1. Cardiac enzymes are normal. Lactic acid 0.7. Lamotrigine level pending. Narrative Course I spoke with temporary help agency referral clerk Dr. Melgar. Dr. Melgar came to see the patient. I spoke with neurologist on-call Dr. Herndon. Neurology consultation was put in. Procedures Procedure Narrative Multiple attempts to put a Madrid catheter unsuccessful. Diagnosis Primary Impression: Altered mental status Qualified Code: R40.1 - Stupor Additional Impression: History of seizure Admitting Information Admitting Physician Requests: Admit Vladislav Mi MD Feb 18, 2017 16:34
[2017-02-18 16:41] LABS: ALT (GPT) 18 U/L (12-78); ANION GAP 10 MEQ/L (5-15); AST (GOT) 11 U/L (15-37); BICARBONATE 24.6 MEQ/L (21.0-32.0); BLOOD UREA NITROGEN 12 MG/DL (7-18); CHLORIDE 106 MEQ/L (98-107); GLOMERULAR FILTRATION RATE 93 ML/MIN (>89); MAGNESIUM 2.1 MG/DL (1.5-2.5); POTASSIUM 3.1 MEQ/L (3.5-5.1); SODIUM (NA) 141 MEQ/L (136-145)
[2017-02-18 16:51] LABS: ALKALINE PHOSPHATASE 74 U/L (45-117); CREATINE KINASE 165 U/L (39-308); TOTAL BILIRUBIN ADULT 0.3 MG/DL (0.2-1.0)
[2017-02-18 17:04] LABS: CKMB 2.2 NG/ML (0.5-3.6)
[2017-02-18] MEDS: SODIUM CHLOR 0.9% 1000 ML INJ 1,000 ML IV SCH (17:23)
[2017-02-18] MEDS ORDERED: LACTULOSE SYRUP 20 GM/30 ML CUP PO PRN (17:30)
[2017-02-18] MEDS ORDERED: SODIUM CHLORIDE 0.9% FLUSH 10 ML FLUSH IV FLUSH PRN (17:30)
[2017-02-18] MEDS ORDERED: SODIUM CHLOR 0.9% 1000 ML INJ 1,000 ML IV SCH (17:30)
[2017-02-18] MEDS ORDERED: MAGNESIUM HYDROXIDE SUSP 30 ML CUP PO PRN (17:30)
[2017-02-18] MEDS ORDERED: SENNOSIDES 8.6 MG TAB PO PRN (17:30)
[2017-02-18] MEDS ORDERED: MISCELLANEOUS NURSING INFORMATION XX SCH (17:30)
[2017-02-18] MEDS ORDERED: BISACODYL 10 MG SUPP RECTAL PRN (17:30)
[2017-02-18] MEDS ORDERED: RESP: ALBUTEROL 2.5 MG/IPRATROPIUM 0.5 MG NEB (PRN) INH (17:30)
[2017-02-18] MEDS ORDERED: CHLORHEXIDINE GLUCONATE 2 % 1 PACK (2 CLOTHS) TOP PRN (17:30)
[2017-02-18] MEDS ORDERED: ONDANSETRON HCL 4 MG/2 ML VIAL IV PRN (17:30)
[2017-02-18 17:46] VITALS: BP 104/66; PULSE 65; RESP 18; O2SAT 98
[2017-02-18] MEDS: ARTIFICIAL TEARS OPTH SOLN 15 ML BTL EACH EYE SCH (18:00)
[2017-02-18] MEDS ORDERED: DEXTROSE 50% IN WATER 50 ML VIAL(D50) IV PRN (18:30)
[2017-02-18] MEDS ORDERED: GLUCAGON 1 MG/ML VIAL OTHER PRN (18:30)
--- NOTE | 2017-02-18 18:32 | PD.CONS ---
HPI Service Urology Consult Requested By Reason for Consult Difficult platt Primary Care Physician Titus Ornelas MD Diagnosis: History of Present Illness 51yo male with history of seizures, hydrocephalus, shunt in place with admitted with altered mental status seen in consultation for difficult platt. Patient with acute onset of AMS, however imaging studies did not identify any abnormalities. Prior examinations limited as it is unclear if there is a component of patient resistance. Platt catheter was attmped to be placed by nursing staff, resistance met 3[address] urethra[address] 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 Per nursing report, patient recently reported desire to void, at which point he was given a urinal and voided, with 100cc noted on bladder scan post void. Review of Systems ROS Limitations: Uncooperative Constitutional: DENIES: Fever Endocrine: DENIES: Heat/cold intolerance Eyes: DENIES: Blurred vision Ears, nose, mouth, throat: DENIES: Hearing loss Respiratory: DENIES: Cough Cardiovascular: DENIES: Chest pain Gastrointestinal: DENIES: Abdominal pain Genitourinary: DENIES: Urgency Musculoskeletal: COMPLAINS OF: Joint pain, Stiffness Integumentary: DENIES: Abnormal pigmentation Hematologic/lymphatic: DENIES: Bruising Neurologic: COMPLAINS OF: Seizures Psychiatric: COMPLAINS OF: Agitation Except as stated in HPI: all other systems reviewed are Neg Past Family Social History Past Medical History Seizures Hydrocephalus Past Surgical History 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 Reported Medications Reported Meds & Active Scripts Active Reported Lamictal (Lamotrigine) 25 Mg Tab 50 Mg PO DAILY@0600 Lamictal (Lamotrigine) 200 Mg Tab 200 Mg PO BID Allergies: Coded Allergies: Cat Dander (Verified Adverse Reaction, Mild, Sneezing, 02/18/17) Dust (Verified Adverse Reaction, Mild, Sneezing, 02/18/17) Active Ordered Medications Current Medications Medications (Trade) Dose Ordered Sig/Isha Route Start Time Stop Time Status Last Admin Sodium Chloride 1,000 ml @ 42 mls/hr [id number] IV 02/18/17 17:30 (NS 1000 ml Inj) 1,000 ml @ 84 mls/hr [id number] IV 02/18/17 17:23 (NS Flush) 2 ml UNSCH PRN IV FLUSH 02/18/17 17:30 (NS Flush) 2 ml BID IV FLUSH 02/18/17 21:00 (Pepcid Inj) 20 mg Q12HR IV PUSH 02/18/17 21:00 (Tears Naturale Opth Soln) 1 drop TID EACH EYE 02/18/17 18:00 (Zofran Inj) 4 mg Q6H PRN IV 02/18/17 17:30 Miscellaneous Information 1 [id number] XX 02/18/17 17:30 (Chlorhexidine 2% Cloth) 3 pack Taper DAILY@04 TOP 02/19/17 04:00 02/15/18 03:59 (Chlorhexidine 2% Cloth) 3 pack UNSCH PRN TOP 02/18/17 17:30 (Leslie-Colace) 1 tab BID PO 02/18/17 21:00 (Milk Of Magnesia Liq) 30 ml Q12H PRN PO 02/18/17 17:30 (Senokot) 17.2 mg Q12H PRN PO 02/18/17 17:30 (Dulcolax Supp) 10 mg DAILY PRN RECTAL 02/18/17 17:30 (Lactulose Liq) 30 ml DAILY PRN PO 02/18/17 17:30 (D50w (Vial) Inj) 50 ml UNSCH PRN IV 02/18/17 18:30 UNV (Glucagon Inj) 1 mg UNSCH PRN OTHER 02/18/17 18:30 UNV Family History Family history reviewed and noncontributory to present illness Social History No tobacco Physical Exam Vital Signs Date Time Temp Pulse Resp B/P Pulse Ox O2 Delivery O2 Flow Rate FiO2 02/18/17 17:46 65 18 104/66 98 Nasal Cannula 2 02/18/17 14:24 98.5 106 19 153/91 97 Room Air 02/18/17 14:19 106 18 97 Room Air 02/18/17 14:19 98.5 106 19 153/91 97 Room Air 02/18/17 14:10 98.5 106 18 153/91 96 Physical Exam GENERAL: This is a well-nourished, in no apparent distress. SKIN: No rashes, ecchymoses or lesions. Cool and dry. HEAD: Atraumatic. Normocephalic. EYES: Eyes closed throughout the duration of exam ENT: Nose without bleeding, purulent drainage. Airway patent. NECK: Trachea midline. CARDIOVASCULAR: Well perfused extremities, no edema RESPIRATORY: nonlabored, equal chest rise GASTROINTESTINAL: Abdomen soft, non-tender, nondistended. GENITOURINARY: Circumcised phallus, normal meatus MUSCULOSKELETAL: Extremities without clubbing, cyanosis, or edema. Contracted B/ L UE. FROM LE NEUROLOGICAL: Awake, uncooperative. Slow speech. Laboratory Tests Test 02/18/17 02/18/17 14:30 15:10 White Blood Count 7.5 Red Blood Count 4.52 Hemoglobin 13.9 Hematocrit 40.6 Mean Corpuscular Volume 89.8 Mean Corpuscular Hemoglobin 30.8 Mean Corpuscular Hemoglobin 34.3 Concent Red Cell Distribution Width 13.2 Platelet Count 238 Mean Platelet Volume 8.3 Neutrophils (%) (Auto) 72.6 Lymphocytes (%) (Auto) 17.7 Monocytes (%) (Auto) 8.7 Eosinophils (%) (Auto) 0.6 Basophils (%) (Auto) 0.4 Neutrophils # (Auto) 5.5 Lymphocytes # (Auto) 1.3 Monocytes # (Auto) 0.7 Eosinophils # (Auto) 0.0 Basophils # (Auto) 0.0 CBC Comment DIFF FINAL Differential Comment Prothrombin Time 10.8 Prothromb Time International 1.0 Ratio Activated Partial 23.9 Thromboplast Time Sodium Level 141 Potassium Level 3.1 Chloride Level 106 Carbon Dioxide Level 24.6 Anion Gap 10 Blood Urea Nitrogen 12 Creatinine 0.87 Estimat Glomerular Filtration 93 Rate Random Glucose 84 Calcium Level 8.7 Magnesium Level 2.1 Total Bilirubin 0.3 Aspartate Amino Transf 11 (AST/SGOT) Alanine Aminotransferase 18 (ALT/SGPT) Alkaline Phosphatase 74 Total Creatine Kinase 165 Creatine Kinase MB 2.2 Troponin I LESS THAN 0.02 Total Protein 8.2 Albumin 3.7 Thyroid Stimulating Hormone 1.940 3rd Gen Lactic Acid Level 0.7 Date/Time Procedure Status Source Growth 02/18/17 15:35 Aerobic Blood Culture Received Blood Peripheral Pending 02/18/17 15:35 Anaerobic Blood Culture Received Blood Peripheral Pending Result Diagram: 02/18/17 1430 02/18/17 143 Imaging Last Impressions Head CT 02/18/171417 Signed Impressions: Service Date/Time: Saturday, February 18, 2017 15:39 - CONCLUSION: 1. No acute findings. Stable ventricular size. Rashid Hogue MD Chest X-Ray 02/18/171417 Signed Impressions: Service Date/Time: Saturday, February 18, 2017 15:07 - CONCLUSION: No evidence of acute cardiopulmonary disease. Jani Arias MD Shunt Study (Imaging) 02/18/17 0000 Signed Impressions: Service Date/Time: Saturday, February 18, 2017 15:07 - CONCLUSION: Intact shunt. Jani Arias MD Assessment and Plan Problem List: (1) Lethargy ICD Code: R53.83 Status: Acute Assessment and Plan -Patient appears to be voiding well with ability to verbalize desire to void and subsequent emptying with low PVRs -Attempted 18Fr coude catheter at bedside, however the patient was resisting with contracted urethral sphincter and reporting pain. I do not believe there is any stricture or false passage. It seems the patient becomes uncomfortable with catheter placement, tori his sphincter, with inability to relax despite verbal instructions to do so, thereby prevent catheterizations -At this point, no need for catheter. Patient voiding without difficulty Rodrigo Turner MD Feb 18, 2017 18:32
[2017-02-18 18:41] LABS: BLOOD, URINE LARGE (NEG); CALCIUM OXALATE CRYSTALS,URINE OCC /hpf; COMMENT (UR) CULTURE INDICATED; CULTURE IF INDICATED CULTURE INDICATED; GLUCOSE,URINE NEG (NEG); KETONE, URINE NEG (NEG); MUCUS URINE FEW /lpf (OCC); NITRITE,URINE NEG (NEG); PH, URINE 5.5 (5.0-8.5); URINE COLOR LIGHT-RED (YELLW/STRAW)
[2017-02-18 18:41] LABS: BLOOD GAS BASE EXCESS 1.5 mmol/L (-2-2); BLOOD GAS HCO3 25 mmol/L (22-26); BLOOD GAS METHEMOGLOBIN 0.7 % (0-2); BLOOD GAS O2 HGB SATURATION 94 % (90-100); BLOOD GAS OXYGEN CONTENT 18.8 Vol % (12.0-20.0); BLOOD GAS PCO2 39 mmHg (38-42); BLOOD GAS PO2 78 mmHG (61-120); BLOOD GAS TOTAL HGB 14.2 G/DL (12.0-16.0); CRITICAL VALUE NO; DRAW SITE RT RADIAL; FIO2 24 %; LITER FLOW 1 L/M; NUMBER OF ARTERIAL PUNCTURES 1; OXYGEN DEVICE NASAL CANNULA; STAT YES; TEMP CORR TO 98.6; ULNAR PULSE PRESENT
[2017-02-18 19:19] LABS: FREE T4 0.91 NG/DL (0.76-1.46)
[2017-02-18 19:22] LABS: AMPHETAMINE, URINE NEG (NEG); BARBITURATES, URINE NEG (NEG); COCAINE, URINE NEG (NEG)
[2017-02-18] MEDS: RESP: ALBUTEROL 2.5 MG/IPRATROPIUM 0.5 MG NEB (SCH) INH (19:48)
[2017-02-18 20:00] VITALS: O2SAT 99
[2017-02-18] MEDS: INSULIN ASPART SUPPLEMENTAL SCALE SQ SCH (21:00)
[2017-02-18] MEDS: DOCUSATE SODIUM 50 MG/SENNA 8.6 MG TAB PO SCH (21:00)
[2017-02-18] MEDS: FAMOTIDINE 20 MG/2 ML VIAL IV PUSH SCH (21:00)
[2017-02-18] MEDS: SODIUM CHLORIDE 0.9% FLUSH 10 ML FLUSH IV FLUSH SCH (21:46)
[2017-02-18 22:00] VITALS: BP 117/69; PULSE 75; RESP 18; O2SAT 98
[2017-02-18 22:02] LABS: PROTHROMBIN TIME - PATIENT 11.6 SEC (9.8-11.6)
[2017-02-18] MEDS ORDERED: IOHEXOL 350 MG/ML 10 ML VIAL (for RAD DIAG) IV ONE (23:25)
[2017-02-19] VITALS (14 sets, daily range): BP systolic 106–167; BP diastolic 57–85; PULSE 72–124; RESP 16–20; TEMP 98.3–102.8; O2SAT 94–98
--- NOTE | 2017-02-19 00:06 | RADRPT ---
EXAM DATE/TIME: 02/18/2017 23:11 [facility] COMPARISON: CT BRAIN W/O CONTRAST, February 18, 2017, 15:39. INDICATIONS : Altered mental status. Evaluate for occlusion. IV CONTRAST: 100 cc Omnipaque 350 (iohexol) IV ; Cumulative dose for multiple exams. RADIATION DOSE: 15.42 CTDIvol (mGy) ; Combined studies MEDICAL HISTORY : Cardiovascular disease. Seizures. Hypertension.TBI. SURGICAL HISTORY : Pacemaker. 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 ENCOUNTER: Initial ACUITY: 1 day PAIN SCALE: 0/10 LOCATION: cranial TECHNIQUE: Volumetric scanning was performed using a multi-row detector CT scanner. The data was post processed with a variety of visualization algorithms including full volume maximum intensity projection, multi -planar sliding thin slab reformation, curved planar reformation, and surface rendering techniques. Using automated exposure control and adjustment of the mA and/or kV according to patient size, radiat ion dose was kept as low as reasonably achievable to obtain optimal diagnostic quality images. DICO M format image data is available electronically for review and comparison. FINDINGS: There is excellent visualization of the major intracranial arteries out to the second-order branch ve ssels. There is no evidence for aneurysm, vessel truncation or stenosis, and no evidence for vascula r malformation. There is atherosclerotic calcification of the distal vertebral arteries and bilateral internal caroti d arteries without evidence for high-grade stenosis or aneurysm intracranially. There is moderate aure rowing proximal left internal carotid artery suspected at the carotid bulb with calcific and soft niraj que deposition. CONCLUSION: 1. Left proximal ICA atherosclerosis with associated stenosis. 2. No intracranial stenosis or aneurysm. Javier Campos MD on February 19, 2017 at 0:03 Board Certified Radiologist. This report was verified electronically.
--- NOTE | 2017-02-19 00:19 | RADRPT ---
EXAM DATE/TIME: 02/18/2017 23:11 [facility] COMPARISON: CTA BRAIN W 3D RECON, February 18, 2017, 23:11. CT BRAIN W/O CONTRAST, February 18, 2017, 15:39. INDICATIONS : Altered mental status. Evaluate for occlusion. IV CONTRAST: 100 cc Omnipaque 350 (iohexol) IV ; Cumulative dose for multiple exams. RADIATION DOSE: 15.42 CTDIvol (mGy) ; Combined studies MEDICAL HISTORY : Cardiovascular disease. Hypertension. Seizures.TBI. SURGICAL HISTORY : Pacemaker. 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 ENCOUNTER: Initial ACUITY: 1 day PAIN SCALE: 0/10 LOCATION: neck Elevated flow velocities and ICA/CCA ratios have been found to correlate with increased degrees of vessel stenosis, calculated as percentage of diameter relative to a normal segment of distal ICA/CCA. TECHNIQUE: Volumetric scanning was performed using a multirow detector CT scanner. The data was post processed with a variety of visualization algorithms including full-volume maximum intensity projection, multip lanar sliding thin-slab reformation, curved-planar reformation, and surface-rendering techniques. Us ing automated exposure control and adjustment of the mA and/or kV according to patient size, radiatio n dose was kept as low as reasonably achievable to obtain optimal diagnostic quality images. DICOM f ormat image data is available electronically for review and comparison. FINDINGS: AORTIC ARCH: There is a 2-vessel origin of the great vessels from the aorta. No evidence of ostial narrowing. RIGHT CAROTID: The common carotid artery is intact. The carotid bulb has a normal configuration without ulceration o r narrowing. The internal carotid artery lumen is smooth without stenosis. The external carotid florinda ry is intact. LEFT CAROTID: There is a 42% stenosis by massive criteria at the left proximal internal carotid artery secondary to moderate soft plaque deposition. VERTEBRALS: The vertebral arteries have a symmetric diameter. No stenotic lesions are seen. CONCLUSION: 1. No evidence for hemodynamically significant stenosis. Javier Campos MD on February 19, 2017 at 0:15 Board Certified Radiologist. This report was verified electronically.
[2017-02-19] MEDS: RESP: ALBUTEROL 2.5 MG/IPRATROPIUM 0.5 MG NEB (SCH) INH ×3 (03:28→15:40)
[2017-02-19] MEDS: CHLORHEXIDINE GLUCONATE 2 % 1 PACK (2 CLOTHS) TOP SCH (04:00)
[2017-02-19] MEDS: SODIUM CHLOR 0.9% 1000 ML INJ 1,000 ML IV SCH (04:46)
[2017-02-19 05:31] LABS: AUTOMATED NEUTROPHIL # 9.6 TH/MM3 (1.8-7.7); BASOPHIL % 0.2 % (0.0-2.0); EOSINOPHIL % 0.1 % (0.0-4.0); HEMATOCRIT 40.6 % (39.0-51.0); HEMO FLAGS DIFF FINAL; LYMPH % 10.2 % (9.0-44.0); LYMPHOCYTE # 1.2 TH/MM3 (1.0-4.8); MEAN CELL VOLUME 90.4 FL (80.0-100.0); MEAN CORPUSCULAR HEMOGLOBIN 31.5 PG (27.0-34.0); MEAN CORPUSCULAR HGB CONC 34.8 % (32.0-36.0); MONO % 6.4 % (0.0-8.0); NEUT % 83.1 % (16.0-70.0); PLATELET COUNT 192 TH/MM3 (150-450); RED BLOOD COUNT 4.49 MIL/MM3 (4.50-5.90); RED CELL DISTRIBUTION WIDTH 13.3 % (11.6-17.2); WHITE BLOOD COUNT 11.6 TH/MM3 (4.0-11.0)
[2017-02-19 05:49] LABS: ALT (GPT) 15 U/L (12-78); ANION GAP 11 MEQ/L (5-15); AST (GOT) 11 U/L (15-37); BICARBONATE 23.3 MEQ/L (21.0-32.0); BLOOD UREA NITROGEN 10 MG/DL (7-18); CHLORIDE 105 MEQ/L (98-107); GLOMERULAR FILTRATION RATE 103 ML/MIN (>89); POTASSIUM 3.1 MEQ/L (3.5-5.1); SODIUM (NA) 139 MEQ/L (136-145)
[2017-02-19 05:51] LABS: ALKALINE PHOSPHATASE 73 U/L (45-117); TOTAL BILIRUBIN ADULT 0.6 MG/DL (0.2-1.0)
[2017-02-19] MEDS: INSULIN ASPART SUPPLEMENTAL SCALE SQ SCH ×4 (05:51→21:00)
[2017-02-19] MEDS: FAMOTIDINE 20 MG/2 ML VIAL IV PUSH SCH ×2 (08:21→21:58)
[2017-02-19] MEDS: SODIUM CHLORIDE 0.9% FLUSH 10 ML FLUSH IV FLUSH SCH ×2 (08:21→21:00)
[2017-02-19] MEDS: DOCUSATE SODIUM 50 MG/SENNA 8.6 MG TAB PO SCH ×2 (08:21→21:58)
[2017-02-19] MEDS: ARTIFICIAL TEARS OPTH SOLN 15 ML BTL EACH EYE SCH (08:21)
--- NOTE | 2017-02-19 10:17 | MB ---
cc: SAMANTHA VARGAS M.D. DATE OF CONSULTATION: 02/19/2017 HISTORY OF PRESENT ILLNESS He is a 51-year-old with history of decreased responsiveness. The patient apparently had a fall where he resides. He strongly believes there was no seizure. He remembers something wrong with the chair. He subsequently became more lethargic and not being as responsive, not following commands as usual. He seems to be somewhat poorly cooperative. Subsequently, he was admitted for further evaluation and treatment. CT brain was negative for acute process. CT angio head and neck showed some left proximal ICA atherosclerosis with associated stenosis but no high-grade disease. On the other hand the specific neck CTA showed no evidence of hemodynamically significant disease. PAST MEDICAL HISTORY He has a history of: 1. Hydrocephalus and shunt. 2. History of seizures. 3. Chronic left hemiparesis. MEDICATION He takes Lamictal total of 250 mg in the morning and 200 mg in the evening. As far as he could tell me, there has not been any seizures recently. LABORATORY DATA CBC largely unremarkable. Urine toxicology negative and lamotrigine level pending. Chemistry also unremarkable with potassium being 3.1, phosphorus 1.9. NEUROLOGICAL EXAMINATION The neurological exam showed the patient to be awake, alert, somewhat irritable and this is probably his baseline of personality. He is oriented and knows the date, knows the place and tells me about his medication and provided me history but when I confronted him about not being responsive yesterday he just would not answer me. Ocular movements shows left eye to be primarily moderately deviated outward and this is "lazy eye" and he has nystagmus, especially when he gazes with the right eye covered. The pupils were about same size and he was able to count fingers for left and right grossly normally. He has spastic left upper extremity with weakness in flexion at the elbow and some wrist spasticity as well. Left lower extremity also seems a bit smaller but exam is somewhat limited. He is moving the lower extremities well with some questionable weakness on the left on the bedside exam. Reflex is brisk but plantar responses were flexor. ASSESSMENT Transient decreased responsiveness after a fall yesterday. No significant imaging abnormalities on the head CT, CT angio neck and head. He is probably back to baseline. History of seizures and apparent cerebral palsy, hydrocephalus, status post shunt. Would continue the current lamotrigine dose, lamotrigine level pending. Appears that he has not had a seizure recently. Unclear but not obvious that what happened yesterday was related to a seizure. I will have an EEG on him and we will follow the neurological course. Thank you for asking us to assist in his care. Samantha Vargas MD OFC/TLL /9:37 AM /9:59 AM
[2017-02-19] MEDS ORDERED: PILL SPLITTER OTHER PRN (11:30)
--- NOTE | 2017-02-19 11:43 | HHI.CCPN ---
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 According the patient just prior to arrival to the emergency department he had a trip and fall hitting the back of his head. Patient reported in [place] that the episode occurred approximately an hour prior to arrival to the emergency prior. Patient stated that at that time he did not think he had loss of consciousness. Patient did complain of posterior neck pain at that time. Patient did not report any new upper or lower extremity numbness tingling or weakness at that time. Patient has baseline issues with gait at baseline and had no new gait disturbance. Patient states he was up out of bed to take his medications which include Lamictal and tegretol. Patient does not report any medication noncompliance. Patient denied other injuries. Patient denies having seizures. This afternoon the patient was noted to be completely unresponsive and EMS was called, the patient was transferred emergently to [facility] and evaluated per ED. The patient was noted to have corneal reflex, gag reflex, good muscle tone, adequate spontaneous respirations but completely unresponsive. CT of the head was again performed and a shunt study which were normal. Critical care medicine was consulted. Neurology consulted, Dr. Herndon and notified per Dr. Mi, stat EEG, Lacmictal level, and stat MRA, MRI of brain and neck were ordered. Concern for ability to perform MRA/ MRI 2/2 vagal nerve stimulator. Plan for CTV and CTA of brain and cervical spine. Ultimately attempts at placing a Madrid catheter unsuccessful, urology consulted for placement. 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 hydrocephalus seizure disorder headaches hypertension Hx Anticoagulant Therapy: No Arthritis: No Asthma: No Blood Disorders: No Heart Rhythm Problems: Yes (FIRST DEGREE HEART BLOCK) Cancer: No Cardiovascular Problems: No Chemotherapy: No Chest Pain: Yes COPD: No Cerebrovascular Accident: No Diabetes: No Diminished Hearing: No Endocrine: No Genitourinary: No Headaches: Yes Hypertension: Yes Immune Disorder: No Musculoskeletal: Yes (left arm contracted) Neurologic: Yes (HYDROCEPHALUS) Psychiatric: No Reproductive: No Respiratory: No Radiation Therapy: No Seizures: Yes Sleep Apnea: No Past Surgical History Abdominal Surgery: No AICD: No Arteriovenous Shunt: No Body Medical Devices: VAGAL NERVE STIMULATOR Cardiac Surgery: Yes Genitourinary Surgery: No Gynecologic Surgery: No Hysterectomy: No Insulin Pump: No Joint Replacement: No Neurologic Surgery: Yes (2005 WORKDAY CONSULTANT SHUNT, jun 2005-VAGUS NERVE STIMULATOR) Pacemaker: No Thoracic Surgery: No Other Surgery: Yes (WORKDAY CONSULTANT SHUNT 1980, HEEL CORD LENGHENING) Social History Alcohol Use: No Tobacco Use: No Substance Use: No Allergies-Medications Allergies-Medications (Allergen,Severity, Reaction): Coded Allergies: Cat Dander (Verified Adverse Reaction, Mild, Sneezing, 02/18/17) Dust (Verified Adverse Reaction, Mild, Sneezing, 02/18/17) Reported Meds & Prescriptions Reported Meds & Active Scripts Active Reported Lamictal (Lamotrigine) 25 Mg Tab 50 Mg PO DAILY@0600 Lamictal (Lamotrigine) 200 Mg Tab 200 Mg PO BID ROS - General Review of Systems ROS Limitations: Clinical Condition PFSH Past Family Social History Allergies: Coded Allergies: Cat Dander (Verified Adverse Reaction, Mild, Sneezing, 02/18/17) Dust (Verified Adverse Reaction, Mild, Sneezing, 02/18/17) Active Ordered Medications see [facility] Family History see [facility] Physical Exam Physical Exam Vital Signs Vital Signs Date Time Temp Pulse Resp B/P Pulse Ox O2 Delivery O2 Flow Rate FiO2 02/18/17 06:55 95 18 98 02/18/17 06:17 98 18 98 Room Air 02/18/17 04:51 98.9 99 18 147/92 97 Physical Exam GENERAL: Completely obtunded and nonresponsive patient GCS 3. SKIN: Warm and dry. HEAD: Atraumatic. Normocephalic. EYES: Pupils equal and round. No scleral icterus. No injection or drainage. ENT: No nasal bleeding or discharge. Mucous membranes pink and moist. NECK: Trachea midline. No JVD. CARDIOVASCULAR: Normal rate, regular rhythm. RESPIRATORY: No accessory muscle use. Clear to auscultation. Breath sounds equal bilaterally. GASTROINTESTINAL: Abdomen soft, non-tender, nondistended. No guarding. MUSCULOSKELETAL: Extremities without clubbing, cyanosis, or edema. No obvious deformities. NEUROLOGICAL: GCS 3. Positive gag reflex, positive lid reflex. Negative Babinski. Imaging Last Impressions Shunt Study (Imaging) 02/18/17 0000 Signed Impressions: Service Date/Time: Saturday, February 18, 2017 05:32 - CONCLUSION: Intact shunt. Loy Troncoso MD Head CT 02/18/17 0000 Signed Impressions: Service Date/Time: Saturday, February 18, 2017 05:05 - CONCLUSION: 1. No evidence of acute intracranial pathology. No masses are identified. 2. Stable ventricular size Loy Troncoso MD Cervical Spine CT 02/18/17 0000 Signed Impressions: Service Date/Time: Saturday, February 18, 2017 05:05 - CONCLUSION: 1. There is no evidence of acute fracture. 2. Degenerative disc disease maximal at C6-C7 Loy Troncoso MD Septic Shock Reassessment Septic Shock Reassessment Heart: Regular rate and rhythm Lungs: Clear Skin: Warm Peripheral Pulses: Bounding Right Radial Bounding Left Radial Bounding Right Dorsalis Pedis Bounding Left Dorsalis Pedis Assessment and Plan Assessment and Plan Assessment and Plan Assessment History of hydrocephalus WORKDAY CONSULTANT shunt (2005) Status post fall-TBI? Seizure disorder Toxic encephalopathy? Plan Plan by systems: Neurologic: -Neurochecks per ICU protocol -Obtain stat EEG -Neurology consultDr. Herndon, notified by Dr. Mi -02/18 CT brain without contrast-no acute disease, no midline shift -02/18 shunt studies-within normal limits -Obtain MRA/MRI stat, compatible with vagal nerve stimulator. Obtain CTV, CTA brain if unable to obtain MRA /MRI -Follow-up Lamictal levels obtain Tegretol levels -UDS [id number] results -Consider lumbar puncture Respiratory: -Currently O2 at 2 L -Plan for possible intubation to protect airway -Maintain head of bed 30 Cardiovascular: -Vagal nerve stimulator in situ -Obtain stat EKG Renal: -Urology consult- insert Madrid -- Strict I/Os FEN/GI: Monitor BMP Maintain Nothing by mouth status Zofran for nausea Pepcid for prophylaxis Heme/ID: Monitor CBC Obtain urine culture Obtain PT/INR Endocrine: Glucose monitoring per ICU protocol -- SSI Prophylaxis: GI Prophylaxis Pepcid twice a day DVT Prophylaxis -- SCDs Hold pharmacological DVT prophylaxis for possible lumbar puncture Lines: Peripheral IVs 2. Central line if indicated Dispo: This patient remains critically ill with one or more organ systems which are or may become a threat to life. I have spent in excess of 30 minutes discontinuously in the care and management of this patient. This time is exclusive of procedures, and includes, but is not limited to, evaluation of the patient, review of the medical record, discussions with family, consultants, nursing staff, or respiratory therapy, and documentation in the medical record. Code Status Full Discussed Condition With Dr. Mi, NORM RN Regina Melgar MD Feb 18, 2017 18:04 Regina Melgar MD Feb 19, 2017 11:43
[2017-02-19] MEDS ORDERED: POTASSIUM PHOSPHATE INJ 30 MMOL in SODIUM CHLOR 0.9% 250 ML INJ 250 ML IV ONE (11:45)
[2017-02-19] MEDS: lamoTRIgine 100 MG TAB PO SCH ×2 (11:58→21:58)
[2017-02-19] MEDS ORDERED: POTASSIUM CHLORIDE 25 MEQ EFFERVESCENT TAB PO ONE (12:00)
--- NOTE | 2017-02-19 12:34 | HHI.CCPN ---
Subjective Remarks/Hospital Course Patient Name: Lan Valentin Unit Number: [id number] Date of : 1965 Patient Status: Departed Emergency Room Attending Doctor: Dr. Mi H&P HPI HPI Service Critical Care Medicine Primary Care Physician Titus Ornelas MD Admission Diagnosis Diagnosis: Travel History International Travel<30 Days: No Contact w/Intl Traveler <30 Da: No Traveled to Known Affected Are: No History of Present Illness 51-year-old male with hydrocephalus with REGULATORY AFFAIRS ASSOCIATE shunt and seizure disorder presents to the emergency department from home by EMS transport to [place] for evaluation of head injury at 4 am. According the patient just prior to arrival to the emergency department he had a trip and fall hitting the back of his head. Patient reported in [place] that the episode occurred approximately an hour prior to arrival to the emergency prior. Patient stated that at that time he did not think he had loss of consciousness. Patient did complain of posterior neck pain at that time. Patient did not report any new upper or lower extremity numbness tingling or weakness at that time. Patient has baseline issues with gait at baseline and had no new gait disturbance. Patient states he was up out of bed to take his medications which include Lamictal and tegretol. Patient does not report any medication noncompliance. Patient denied other injuries. Patient denies having seizures. This afternoon the patient was noted to be completely unresponsive and EMS was called, the patient was transferred emergently to [facility] and evaluated per ED. The patient was noted to have corneal reflex, gag reflex, good muscle tone, adequate spontaneous respirations but completely unresponsive. CT of the head was again performed and a shunt study which were normal. Critical care medicine was consulted. Neurology consulted, Dr. Herndon and notified per Dr. Mi, stat EEG, Lacmictal level, and stat MRA, MRI of brain and neck were ordered. Concern for ability to perform MRA/ MRI 2/2 vagal nerve stimulator. Plan for CTV and CTA of brain and cervical spine. Ultimately attempts at placing a Madrid catheter unsuccessful, urology consulted for placement. Subjective: 02/19: Shortly after admission in the ED the patient had resolution of symptoms GCS of 15. Imaging studies were performed, no cervical stenosis. Tegretol level was noted to be subtherapeutic. Neurology is following. Patient currently alert oriented and logical status returned to baseline, tolerating diet . In no apparent distress. . Imaging Last Impressions Shunt Study (Imaging) 02/18/17 0000 Signed Impressions: Service Date/Time: Saturday, February 18, 2017 05:32 - CONCLUSION: Intact shunt. Loy Troncoso MD Head CT 02/18/17 0000 Signed Impressions: Service Date/Time: Saturday, February 18, 2017 05:05 - CONCLUSION: 1. No evidence of acute intracranial pathology. No masses are identified. 2. Stable ventricular size Loy Troncoso MD Cervical Spine CT 02/18/17 0000 Signed Impressions: Service Date/Time: Saturday, February 18, 2017 05:05 - CONCLUSION: 1. There is no evidence of acute fracture. 2. Degenerative disc disease maximal at C6-C7 Loy Troncoso MD Objective Vital Signs Date Time Temp Pulse Resp B/P Pulse Ox O2 Delivery O2 Flow Rate FiO2 02/19/17 10:00 78 02/19/17 08:54 97 21 02/19/17 08:00 98.3 18 115/57 02/19/17 07:00 Room Air 02/18/17 22:54 2 Result Diagram: 02/19/17 0430 02/19/17 0430 Other Results Laboratory Tests Test 02/18/17 18:28 Blood Gas Puncture Site RT RADIAL Blood Gas Patient Temperature 98.6 Blood Gas HCO3 25 mmol/L (22-26) Blood Gas Base Excess 1.5 mmol/L (-2-2) Blood Gas Oxygen Saturation 94 % (90-100) Arterial Blood pH 7.43 (7.380-7.420) Arterial Blood Partial 39 mmHg (38-42) Pressure CO2 Arterial Blood Partial 78 mmHG Pressure O2 (61-120) Arterial Blood Oxygen Content 18.8 Vol % (12.0-20.0) Arterial Blood 1.0 % (0-4) Carboxyhemoglobin Arterial Blood Methemoglobin 0.7 % (0-2) Blood Gas Hemoglobin 14.2 G/DL (12.0-16.0) Oxygen Delivery Device NASAL CANNULA Blood Gas Liter Flow 1 L/M Blood Gas Inspired Oxygen 24 % Imaging Last Impressions Head CT 02/18/17 1418 Signed Impressions: Service Date/Time: Saturday, February 18, 2017 15:39 - CONCLUSION: 1. No acute findings. Stable ventricular size. Rashid Hogue MD Chest X-Ray 02/18/17 1418 Signed Impressions: Service Date/Time: Saturday, February 18, 2017 15:07 - CONCLUSION: No evidence of acute cardiopulmonary disease. Jani Arias MD Shunt Study (Imaging) 02/18/17 0000 Signed Impressions: Service Date/Time: Saturday, February 18, 2017 15:07 - CONCLUSION: Intact shunt. Jani Arias MD Neck CTA 02/18/17 0000 Signed Impressions: Service Date/Time: Saturday, February 18, 2017 23:11 - CONCLUSION: 1. No evidence for hemodynamically significant stenosis. Javier Campos MD Head CTA 02/18/17 0000 Signed Impressions: Service Date/Time: Saturday, February 18, 2017 23:11 - CONCLUSION: 1. Left proximal ICA atherosclerosis with associated stenosis. 2. No intracranial stenosis or aneurysm. Javier Campos MD Objective Remarks Physical Exam GENERAL: Alert, awake and responsive. Conversation appropriate. GCS 15 SKIN: Warm and dry. HEAD: Atraumatic. Normocephalic. EYES: Pupils equal and round. No scleral icterus. No injection or drainage. ENT: No nasal bleeding or discharge. Mucous membranes pink and moist. NECK: Trachea midline. No JVD. CARDIOVASCULAR: Normal rate, regular rhythm. Telemetry sinus rhythm RESPIRATORY: No accessory muscle use. Clear to auscultation. Breath sounds equal bilaterally. GASTROINTESTINAL: Abdomen soft, non-tender, nondistended. No guarding. Normoactive bowel sounds MUSCULOSKELETAL: Extremities without clubbing, cyanosis, or edema. No obvious deformities. NEUROLOGICAL: RASS 0. Follows commands 4 extremities A/P Assessment and Plan Assessment History of hydrocephalus REGULATORY AFFAIRS ASSOCIATE shunt (2005) Status post fall-TBI? Seizure disorder Toxic encephalopathy Epilepsy Plan Plan by systems: Neurologic: -Neurochecks per ICU protocol -Obtain stat EEG -Neurology followingDrGale Herndon, -02/18 CT brain without contrast-no acute disease, no midline shift -02/18 shunt studies-within normal limits -CTA neck-no cervical stenosis -Follow-up Lamictal level pending .Tegretol level subtherapeutic -UDS screen- negative tox screen -GCS 15, resolution of symptoms Respiratory: -Maintain O2 saturation greater than 92%. Supplement with O2 if needed -Bronchodilators as needed -Maintain head of bed 30 Cardiovascular: -Vagal nerve stimulator in situ - Normotensive Renal: -No Madrid -- Strict I/Os FEN/GI: Repletion of electrolytes per ICU protocol. Replete potassium, phosphorus Resume regular diet DC IV fluids Zofran for nausea Pepcid for prophylaxis Heme/ID: Monitor CBC 02/18 PT/INR- WNL Endocrine: Glucose monitoring per ICU protocol -- SSI Prophylaxis: GI Prophylaxis Pepcid twice a day DVT Prophylaxis -- SCDs Out of bed to chair Lines: Peripheral IVs 2. Dispo: Level 2. Patient alert and oriented, neurological studies within normal limits. Noted Tegretol level subtherapeutic Dr. Herndon following. Plan for transfer to [facility] in a.m. Transferred to medical surgical floor Discussed with patient and WORKERS COMPENSATION COORDINATOR at bedside Physician Regina Tong MD Feb 19, 2017 12:34
[2017-02-20] VITALS (12 sets, daily range): BP systolic 106–138; BP diastolic 62–74; PULSE 87–107; RESP 18–20; TEMP 98.2–99.2; O2SAT 94–100
--- NOTE | 2017-02-20 00:27 | RADRPT ---
EXAM DATE/TIME: 02/20/2017 00:16 [place] COMPARISON: CHEST SINGLE AP, February 18, 2017, 15:07. INDICATIONS : Short of breath. MEDICAL HISTORY : Hypertension. Epilepsy, seizures. SURGICAL HISTORY : Right CASING MAN shunt, Sylvain nerve stimulator. ENCOUNTER: Subsequent ACUITY: 2 days PAIN SCORE: 0/10 LOCATION: Bilateral chest FINDINGS: Lungs are clear. Shunt catheter tubing and a vagus nerve stimulator are again seen. The heart size is mildly prominent. The osseous structures demonstrate degenerative changes. CONCLUSION: No acute disease. Javier Campos MD on February 20, 2017 at 0:25 Board Certified Radiologist. This report was verified electronically.
[2017-02-20] MEDS: PIPERACIL-TAZO 4.5 GM PREMIX 100 ML IV SCH ×3 (01:14→13:59)
[2017-02-20 03:42] LABS: AUTOMATED NEUTROPHIL # 17.7 TH/MM3 (1.8-7.7); BASOPHIL % 0.1 % (0.0-2.0); HEMATOCRIT 40.5 % (39.0-51.0); HEMO FLAGS DIFF FINAL; LYMPH % 3.3 % (9.0-44.0); LYMPHOCYTE # 0.6 TH/MM3 (1.0-4.8); MEAN CELL VOLUME 90.2 FL (80.0-100.0); MEAN CORPUSCULAR HEMOGLOBIN 31.9 PG (27.0-34.0); MEAN CORPUSCULAR HGB CONC 35.4 % (32.0-36.0); MONO % 5.9 % (0.0-8.0); NEUT % 90.7 % (16.0-70.0); PLATELET COUNT 188 TH/MM3 (150-450); RED BLOOD COUNT 4.49 MIL/MM3 (4.50-5.90); RED CELL DISTRIBUTION WIDTH 13.7 % (11.6-17.2); WHITE BLOOD COUNT 19.5 TH/MM3 (4.0-11.0)
[2017-02-20] MEDS: CHLORHEXIDINE GLUCONATE 2 % 1 PACK (2 CLOTHS) TOP SCH (04:00)
[2017-02-20 04:07] LABS: BICARBONATE 24.8 MEQ/L (21.0-32.0); MAGNESIUM 2.4 MG/DL (1.5-2.5); POTASSIUM 4.6 MEQ/L (3.5-5.1)
[2017-02-20] MEDS: INSULIN ASPART SUPPLEMENTAL SCALE SQ SCH ×3 (05:49→21:00)
[2017-02-20] MEDS: RESP: ALBUTEROL 2.5 MG/IPRATROPIUM 0.5 MG NEB (SCH) INH ×4 (05:59→21:10)
[2017-02-20 07:27] LABS: BACTERIA, URINE MANY /hpf; BLOOD, URINE SMALL (NEG); COMMENT (UR) CULTURE INDICATED; CULTURE IF INDICATED CULTURE INDICATED; GLUCOSE,URINE NEG (NEG); KETONE, URINE NEG (NEG); MUCUS URINE FEW /lpf (OCC); NITRITE,URINE NEG (NEG); PH, URINE 5.5 (5.0-8.5); URINE COLOR YELLOW (YELLW/STRAW)
[2017-02-20] MEDS: SODIUM CHLORIDE 0.9% FLUSH 10 ML FLUSH IV FLUSH SCH ×2 (09:00→21:29)
[2017-02-20] MEDS: DOCUSATE SODIUM 50 MG/SENNA 8.6 MG TAB PO SCH ×2 (09:07→21:29)
[2017-02-20] MEDS: lamoTRIgine 100 MG TAB PO SCH ×2 (09:07→21:29)
[2017-02-20] MEDS: FAMOTIDINE 20 MG/2 ML VIAL IV PUSH SCH ×2 (09:08→21:29)
--- NOTE | 2017-02-20 12:16 | MG ---
cc: SAMANTHA VARGAS M.D. Lab No: Date: 02/19/2017 Age: 51 Sex: M Race: __ REQUESTING PHYSICIAN Dr. Vargas INDICATIONS An EEG was obtained on this 51-year-old patient being evaluated for seizures and shunt. DESCRIPTION The EEG shows a mixture of alpha with beta rhythms. There is intermittent left hemisphere theta activity. There are some associated sharp waves and probably some sharp discharges on the left hemisphere. There is a continuous asymmetry again slower rhythms on the left than the right noted throughout. Photic stimulation showed no changes and hyperventilation was also unremarkable. INTERPRETATION Abnormal EEG because of continuous left hemisphere slowing with some probable sharp discharges suggesting left hemisphere epileptiform and structural abnormality, but no ictal findings are present. Clinical correlation. MD SARWAT Goldman/CARLOS /8:29 PM /12:05 PM
--- NOTE | 2017-02-20 15:56 | EKG ---
Date Performed: 02/18/2017 Time Performed: 18:52:47 PTAGE: 51 years EKG: Sinus rhythm WITH FIRST DEGREE AV BLOCK ABNORMAL ECG PREVIOUS TRACING : 02/18/2017 14.29 DOCTOR: Angie Bolanos Interpretating Date/Time 02/20/2017 15:48:10
--- NOTE | 2017-02-20 15:56 | EKG ---
Date Performed: 02/18/2017 Time Performed: 14:29:58 PTAGE: 51 years EKG: Sinus rhythm NORMAL ECG WARNING: DATA QUALITY MAY AFFECT INTERPRETATION PREVIOUS TRACING : 06/09/2016 10.38 DOCTOR: Angie Bolanos Interpretating Date/Time 02/20/2017 15:48:15
--- NOTE | 2017-02-20 19:41 | HHI.PR ---
Review/Management Daily Summary 02/20 alert and pleasant today oriented fells doing fine eeg and ct brain seen continue lamictal as is d/c soon neuro zhao Subjective Subjective Comments No acute events reported No headache No chest pain No dyspnea Active Medications Current Medications Medications (Trade) Dose Ordered Sig/Isha Route Start Time Stop Time Status Last Admin (NS Flush) 2 ml UNSCH PRN IV FLUSH 02/18/17 17:30 (NS Flush) 2 ml BID IV FLUSH 02/18/17 21:00 02/20/17 09:00 (Pepcid Inj) 20 mg Q12HR IV PUSH 02/18/17 21:00 02/20/17 09:08 (Zofran Inj) 4 mg Q6H PRN IV 02/18/17 17:30 Miscellaneous Information 1 Q361D XX 02/18/17 17:30 02/18/17 17:30 (Chlorhexidine 2% Cloth) 3 pack Taper DAILY@04 TOP 02/19/17 04:00 02/15/18 03:59 (Chlorhexidine 2% Cloth) 3 pack UNSCH PRN TOP 02/18/17 17:30 (Leslie-Colace) 1 tab BID PO 02/18/17 21:00 02/20/17 09:07 (Milk Of Magnesia Liq) 30 ml Q12H PRN PO 02/18/17 17:30 (Senokot) 17.2 mg Q12H PRN PO 02/18/17 17:30 (Dulcolax Supp) 10 mg DAILY PRN RECTAL 02/18/17 17:30 (Lactulose Liq) 30 ml DAILY PRN PO 02/18/17 17:30 (D50w (Vial) Inj) 50 ml UNSCH PRN IV 02/18/17 18:30 (Glucagon Inj) 1 mg UNSCH PRN OTHER 02/18/17 18:30 (LaMICtal) 200 mg HS PO 02/19/17 21:00 02/19/17 21:58 (LaMICtal) 250 mg DAILY PO 02/19/17 12:00 02/20/17 09:07 Miscellaneous 1 ea 1 ea UNSCH PRN OTHER 02/19/17 11:30 (Zosyn 4.5 Gm Premix) 100 ml @ 200 mls/hr Q6H IV 02/20/17 00:00 02/20/17 13:59 Allergies Allergies Coded Allergies Cat Dander (Verified Adverse Reaction, Mild, Sneezing, 02/18/17) Dust (Verified Adverse Reaction, Mild, Sneezing, 02/18/17) Exam I&O / VS 02/19/17 02/19/17 02/20/17 15:00 23:00 07:00 Intake Total 342 ml Output Total 350 ml 125 ml Balance -8 ml -125 ml Intake Oral 300 ml IV Total 42 ml Output Urine Total 350 ml 125 ml # Voids 3 # Bowel Movements 0 1 Vital Signs Date Time Temp Pulse Resp B/P Pulse Ox O2 Delivery O2 Flow Rate FiO2 02/20/17 16:22 98 21 02/20/17 16:05 98.6 87 18 128/69 98 02/20/17 12:29 98.4 95 18 106/65 98 02/20/17 08:49 98 21 02/20/17 08:12 98.3 104 20 124/63 100 02/20/17 07:00 99 02/20/17 05:59 96 02/20/17 05:00 88 02/20/17 04:00 98.2 98 18 138/74 95 02/20/17 00:00 Room Air 02/20/17 00:00 98.6 107 18 136/70 95 02/19/17 22:09 99.8 120 20 113/64 94 02/19/17 20:00 102.8 124 18 167/85 97 Objective Radiology Results Last 48 hours Impressions Chest X-Ray 02/19/17 0000 Signed Impressions: Service Date/Time: Monday, February 20, 2017 00:16 - CONCLUSION: No acute disease. Javier Campos MD Micro and Labs Laboratory Tests Test 02/20/17 02/20/17 02/20/17 03:01 03:17 05:50 White Blood Count 19.5 Red Blood Count 4.49 Hemoglobin 14.3 Hematocrit 40.5 Mean Corpuscular Volume 90.2 Mean Corpuscular Hemoglobin 31.9 Mean Corpuscular Hemoglobin 35.4 Concent Red Cell Distribution Width 13.7 Platelet Count 188 Mean Platelet Volume 8.1 Neutrophils (%) (Auto) 90.7 Lymphocytes (%) (Auto) 3.3 Monocytes (%) (Auto) 5.9 Eosinophils (%) (Auto) 0.0 Basophils (%) (Auto) 0.1 Neutrophils # (Auto) 17.7 Lymphocytes # (Auto) 0.6 Monocytes # (Auto) 1.2 Eosinophils # (Auto) 0.0 Basophils # (Auto) 0.0 CBC Comment DIFF FINAL Differential Comment Sodium Level 135 Potassium Level 4.6 Chloride Level 104 Carbon Dioxide Level 24.8 Anion Gap 6 Blood Urea Nitrogen 12 Creatinine 1.10 Estimat Glomerular Filtration 71 Rate Random Glucose 123 Calcium Level 8.7 Magnesium Level 2.4 Lactic Acid Level 1.7 Urine Color YELLOW Urine Turbidity HAZY Urine pH 5.5 Urine Specific [place] 1.028 Urine Protein TRACE Urine Glucose (UA) NEG Urine Ketones NEG Urine Occult Blood SMALL Urine Nitrite NEG Urine Bilirubin NEG Urine Urobilinogen LESS THAN 2.0 Urine Leukocyte Esterase LARGE Urine RBC 22 Urine WBC 48 Urine Bacteria MANY Urine Mucus FEW Microscopic Urinalysis Comment CULTURE INDICATED Date/Time Procedure Status Source Growth 02/20/17 05:50 Urine Culture Received Urine Clean Catch Pending 02/20/17 03:17 Aerobic Blood Culture Received Blood Peripheral Pending 02/20/17 03:17 Anaerobic Blood Culture Received Blood Peripheral Pending 02/18/17 18:10 Urine Culture - Final Complete Urine Random Urine 10-50,000 CFU/ML MIXED GRAM POSITIVE ... 02/18/17 15:35 Aerobic Blood Culture - Preliminary Resulted Blood Peripheral NO GROWTH IN 2 DAYS 02/18/17 15:35 Anaerobic Blood Culture - Preliminary Resulted Blood Peripheral NO GROWTH IN 2 DAYS Andrew Vargas MD Feb 20, 2017 19:41
--- NOTE | 2017-02-20 23:32 | HHI.PR ---
Subjective Remarks Patient seen today around noon. Says he is feeling all right. Denies any chest pain or shortness of breath. Objective Vital Signs Date Time Temp Pulse Resp B/P Pulse Ox O2 Delivery O2 Flow Rate FiO2 02/20/17 21:55 99.2 93 20 112/62 94 02/20/17 16:22 98 21 02/20/17 16:05 98.6 87 18 128/69 98 02/20/17 12:29 98.4 95 18 106/65 98 02/20/17 08:49 98 21 02/20/17 08:12 98.3 104 20 124/63 100 02/20/17 07:00 99 02/20/17 05:59 96 02/20/17 05:00 88 02/20/17 04:00 98.2 98 18 138/74 95 02/20/17 00:00 Room Air 02/20/17 00:00 98.6 107 18 136/70 95 I/O 02/19/17 02/19/17 02/19/17 02/20/17 02/20/17 02/20/17 07:00 15:00 23:00 07:00 15:00 23:00 Intake Total 261 ml 342 ml 240 ml 200 ml Output Total 300 ml 350 ml 125 ml Balance -39 ml -8 ml -125 ml 240 ml 200 ml Intake Oral 50 ml 300 ml 240 ml IV Total 211 ml 42 ml 200 ml Output Urine Total 300 ml 350 ml 125 ml # Voids 3 3 1 # Bowel Movements 0 0 1 3 1 Result Diagram: 02/20/17 0301 02/20/17 0301 Objective Remarks GENERAL: patient lying in bed. Appears comfortable. SKIN: Warm and dry. HEAD: Normocephalic. EYES: No scleral icterus. No injection or drainage. NECK: Supple, trachea midline. No JVD. CARDIOVASCULAR: Regular rate and rhythm without murmurs, gallops, or rubs. RESPIRATORY: Breath sounds equal bilaterally. No accessory muscle use. GASTROINTESTINAL: Abdomen soft, non-tender, nondistended. MUSCULOSKELETAL: No cyanosis, or edema. BACK: Nontender without obvious deformity. No CVA tenderness. A/P Assessment and Plan 02/20/17 Increased white count today 19. No signs of worsening infection. Continue to monitor. //History of hydrocephalus //TERRITORY ACCOUNT EXECUTIVE shunt (2005) //Status post fall-TBI? //Seizure disorder //Toxic encephalopathy //Epilepsy -Neurology followingDrGale Herndon, -02/18 CT brain without contrast-no acute disease, no midline shift -02/18 shunt studies-within normal limits -CTA neck-no cervical stenosis -Follow-up Lamictal level pending .Tegretol level subtherapeutic -UDS screen- negative tox screen -GCS 15, resolution of symptoms -EEG pending. -Neurology following. Appreciate assistance. //Possible sepsis //Possible UTI. -Leukocytosis 19, tachycardia Fever 02/19 =102.8 -Workup so far negative. Blood cultures negative to date. Urine with mixed gram-positive barbi. -02/20. Started on Zosyn overnight. -Follow up cultures. Continue to monitor. Prophylaxis: GI Prophylaxis- Pepcid twice a day DVT Prophylaxis-- Jovan Maloney MD Feb 20, 2017 23:32 FEN/GI: Repletion of electrolytes per ICU protocol. Replete potassium, phosphorus Resume regular diet DC IV fluids Zofran for nausea Pepcid for prophylaxis Heme/ID: Monitor CBC 02/18 PT/INR- WNL Endocrine: Glucose monitoring per ICU protocol -- SSI Prophylaxis: GI Prophylaxis Pepcid twice a day DVT Prophylaxis -- Jovan Maloney MD Feb 20, 2017 23:32
[2017-02-21] VITALS (7 sets, daily range): BP systolic 104–147; BP diastolic 57–84; PULSE 75–95; RESP 20; TEMP 94.3–97.9; O2SAT 93–99
[2017-02-21] MEDS: PIPERACIL-TAZO 4.5 GM PREMIX 100 ML IV SCH ×3 (00:44→12:01)
[2017-02-21] MEDS: CHLORHEXIDINE GLUCONATE 2 % 1 PACK (2 CLOTHS) TOP SCH (04:00)
[2017-02-21] MEDS: RESP: ALBUTEROL 2.5 MG/IPRATROPIUM 0.5 MG NEB (SCH) INH ×4 (04:00→20:43)
[2017-02-21] MEDS: INSULIN ASPART SUPPLEMENTAL SCALE SQ SCH ×4 (06:08→21:00)
[2017-02-21] MEDS: lamoTRIgine 100 MG TAB PO SCH ×2 (08:59→23:06)
[2017-02-21] MEDS: FAMOTIDINE 20 MG/2 ML VIAL IV PUSH SCH ×2 (08:59→23:07)
[2017-02-21] MEDS: DOCUSATE SODIUM 50 MG/SENNA 8.6 MG TAB PO SCH ×2 (09:00→21:00)
[2017-02-21] MEDS: SODIUM CHLORIDE 0.9% FLUSH 10 ML FLUSH IV FLUSH SCH (09:00)
[2017-02-21 10:49] LABS: AUTOMATED NEUTROPHIL # 6.5 TH/MM3 (1.8-7.7); BASOPHIL % 0.4 % (0.0-2.0); EOSINOPHIL % 0.5 % (0.0-4.0); HEMATOCRIT 42.4 % (39.0-51.0); HEMO FLAGS DIFF FINAL; LYMPH % 11.8 % (9.0-44.0); MEAN CELL VOLUME 90.7 FL (80.0-100.0); MEAN CORPUSCULAR HEMOGLOBIN 30.8 PG (27.0-34.0); MEAN CORPUSCULAR HGB CONC 33.9 % (32.0-36.0); MONO % 8.2 % (0.0-8.0); NEUT % 79.1 % (16.0-70.0); PLATELET COUNT 143 TH/MM3 (150-450); RED BLOOD COUNT 4.67 MIL/MM3 (4.50-5.90); RED CELL DISTRIBUTION WIDTH 13.4 % (11.6-17.2); WHITE BLOOD COUNT 8.2 TH/MM3 (4.0-11.0)
[2017-02-21 11:14] LABS: BICARBONATE 22.1 MEQ/L (21.0-32.0); MAGNESIUM 2.3 MG/DL (1.5-2.5); POTASSIUM 3.5 MEQ/L (3.5-5.1)
--- NOTE | 2017-02-21 13:22 | PD.CONS ---
History of Present Illness Service Infectious disease Consult Requested By Dr. Guo Reason for Consult Evaluate patient with positive blood culture, has a SUPERVISOR BONDING shunt, and had a fever on admission Primary Care Physician Titus Ornelas MD Diagnoses: History of Present Illness Patient seen and examined. Records reviewed. Patient is a 51-year-old male, with known history of seizure, hydrocephalus, has a SUPERVISOR BONDING shunt, initially presented to [place] emergency room on February 18 after he fell. He apparently hit his head, but there was no loss of consciousness. He was having pain on the side of the head that hit the ground. Patient underwent CT of the head, and CT of the cervical spine which were both unremarkable. He also underwent evaluation of his shunt and there was no problem with the function of the shunt. He was sent home, and apparently became unresponsive, so EMS was called and he was taken to the hospital for further evaluation and treatment. Patient has had further imaging studies and they all came back negative. Neurology saw the patient , and his seizure medications were subtherapeutic. Was felt that he could probably have had a seizure episode and that's why he became unresponsive. Patient had 2 blood cultures done on February 18. He had one fever on February 19. Repeat blood cultures were done on February 20. 1 out of the 2 blood cultures from February 18 is growing gram-positive cocci in chains. Blood cultures from February 20 are negative. Patient has been afebrile since admission. He has not had any repeat episode of unresponsiveness. Also on admission he had a positive urinalysis. [place] catheter was apparently tried and was not successful, but patient has not been having any urinary complaints. Infectious disease consultation has been requested to evaluate the patient who had an episode of fever, and one positive blood culture. Review of Systems Constitutional: DENIES: Fever, Chills Eyes: DENIES: Eye pain Ears, nose, mouth, throat: DENIES: Nasal discharge, Oral lesions, Throat pain, Ear Pain Respiratory: DENIES: Cough, Shortness of breath Cardiovascular: DENIES: Chest pain, Palpitations Gastrointestinal: COMPLAINS OF: Diarrhea, DENIES: Abdominal pain, Constipation , Nausea, Vomiting, Difficulty Swallowing Genitourinary: DENIES: Urgency, Dysuria Musculoskeletal: DENIES: Joint pain, Back pain Integumentary: DENIES: Rash Neurologic: COMPLAINS OF: Localized weakness, Seizures, DENIES: Headache Psychiatric: DENIES: Hallucinations Past Family Social History Allergies: Coded Allergies: Cat Dander (Verified Adverse Reaction, Mild, Sneezing, 02/18/17) Dust (Verified Adverse Reaction, Mild, Sneezing, 02/18/17) Past Medical History Hydrocephalus Seizure, recurrent Left-sided weakness Vagal nerve stimulator ? Cerebral palsy Past Surgical History SUPERVISOR BONDING shunt placement, multiple revisions, last revision looks like was in 2006, and at that time the old shunt was left in place, and a new SUPERVISOR BONDING shunt was placed Vagal nerve stimulator for control of his seizures Active Ordered Medications Albuterol Dulcolax Pepcid Insulin Lactulose Lamictal MOM Zofran Zosyn Leslie-Colace Senokot Family History Noncontributory Social History No smoking No alcohol abuse No illicit drugs Physical Exam Vital Signs Vital Signs Date Time Temp Pulse Resp B/P Pulse Ox O2 Delivery O2 Flow Rate FiO2 02/21/17 12:05 97.8 84 20 126/74 99 02/21/17 09:15 93 21 02/21/17 08:57 94.3 75 20 129/75 99 02/21/17 06:00 97.9 80 20 104/59 93 02/21/17 01:35 97.4 78 20 107/57 96 02/20/17 22:10 Room Air 02/20/17 21:55 99.2 93 20 112/62 94 02/20/17 20:00 95 02/20/17 16:22 98 21 02/20/17 16:05 98.6 87 18 128/69 98 Physical Exam GENERAL: Patient is a well-nourished, well-developed male, awake and alert, not in respiratory distress. Ambulating in his room SKIN: Warm and dry. No generalized rash, no ecchymoses and no evidence of embolic lesions. HEAD: Atraumatic. Normocephalic. No temporal wasting, or tenderness. SUPERVISOR BONDING shunt in the head unremarkable EYES: Speed conjunctiva. No petechia or hemorrhage. Pupils equal, round and reactive to light. Extraocular movements full and intact. No scleral icterus. No injection or drainage. Has left facial weakness EARS, NOSE AND THROAT: Nose without bleeding or purulent nasal discharge. No sinus tenderness. Mucous membranes pink and moist. No oral lesions noted. No exudate. No oral thrush. NECK: Trachea midline. Supple and not tender, no meningeal signs CARDIOVASCULAR: Regular rate and rhythm. No murmurs, rubs or gallops heard. Vagal stimulator generator on L side upper chest with no evidence of infection RESPIRATORY: Clear to auscultation. Breath sounds equal bilaterally. No rales , wheezing or rhonchi ABDOMEN: Soft, non-tender, nondistended. Bowel sounds present and normoactive. No guarding. No rebound. No organomegaly. Distal cath site unremarkable. EXTREMITIES: No clubbing, cyanosis, or edema. No joint effusion, has good ROM. No calf tenderness. Well perfused and warm. NEUROLOGICAL: Awake and alert. Cranial nerves grossly intact. LUE side spastic , and weak, wit contractures PSYCHIATRIC: Normal affect, calm and cooperative. LINE: No evidence of infection Laboratory Laboratory Tests Test 02/21/17 08:20 White Blood Count 8.2 Red Blood Count 4.67 Hemoglobin 14.4 Hematocrit 42.4 Mean Corpuscular Volume 90.7 Mean Corpuscular Hemoglobin 30.8 Mean Corpuscular Hemoglobin 33.9 Concent Red Cell Distribution Width 13.4 Platelet Count 143 Mean Platelet Volume 8.6 Neutrophils (%) (Auto) 79.1 Lymphocytes (%) (Auto) 11.8 Monocytes (%) (Auto) 8.2 Eosinophils (%) (Auto) 0.5 Basophils (%) (Auto) 0.4 Neutrophils # (Auto) 6.5 Lymphocytes # (Auto) 1.0 Monocytes # (Auto) 0.7 Eosinophils # (Auto) 0.0 Basophils # (Auto) 0.0 CBC Comment DIFF FINAL Differential Comment Sodium Level 135 Potassium Level 3.5 Chloride Level 104 Carbon Dioxide Level 22.1 Anion Gap 9 Blood Urea Nitrogen 9 Creatinine 0.85 Estimat Glomerular Filtration 96 Rate Random Glucose 89 Calcium Level 9.1 Phosphorus Level 2.1 Magnesium Level 2.3 Albumin 3.3 Date/Time Procedure Status Source Growth 02/20/17 05:50 Urine Culture Received Urine Clean Catch Pending 02/20/17 03:17 Aerobic Blood Culture - Preliminary Resulted Blood Peripheral NO GROWTH IN 1 DAY 02/20/17 03:17 Anaerobic Blood Culture - Preliminary Resulted Blood Peripheral NO GROWTH IN 1 DAY 02/18/17 18:10 Urine Culture - Final Complete Urine Random Urine 10-50,000 CFU/ML MIXED GRAM POSITIVE ... Result Diagram: 02/21/17 0820 02/21/17 0820 Imaging RADIOLOGY STUDIES/FILMS REVIEWED Chest X-Ray 02/19/17 0000 Signed Impressions: Service Date/Time: Monday, February 20, 2017 00:16 - CONCLUSION: No acute disease. Javier Campos MD Head CT 02/18/17 1418 Signed Impressions: Service Date/Time: Saturday, February 18, 2017 15:39 - CONCLUSION: 1. No acute findings. Stable ventricular size. Rashid Hogue MD Shunt Study (Imaging) 02/18/17 0000 Signed Impressions: Service Date/Time: Saturday, February 18, 2017 15:07 - CONCLUSION: Intact shunt. Jani Arias MD Neck CTA 02/18/17 0000 Signed Impressions: Service Date/Time: Saturday, February 18, 2017 23:11 - CONCLUSION: 1. No evidence for hemodynamically significant stenosis. Javier Campos MD Head CTA 02/18/17 0000 Signed Impressions: Service Date/Time: Saturday, February 18, 2017 23:11 - CONCLUSION: 1. Left proximal ICA atherosclerosis with associated stenosis. 2. No intracranial stenosis or aneurysm. Javier Campos MD Assessment and Plan Assessment and Plan IMPRESSION One (+) BC with GPC in chains, ?significance, grew on the 3rd day One episode of fever (+) UA, denies symptoms Possible seizure as cause of unresponsiveness S/P SUPERVISOR BONDING shunt replacement 2006 Has vagal nerve stimulator Known chronic SZ disorder RECOMMENDATION IV Vanco Use Levaquin for Repeat UA Follow C/S and will make further recommendations once finalized Follow temps Monitor progress I will follow along with you Thank you for this consultation Discussed Condition With Explained plan to the patient Selene Akhtar MD Feb 21, 2017 13:22
[2017-02-21] MEDS ORDERED: Vancomycin Consult Pharmacy 1 EA OTHER SCH (14:15)
[2017-02-21] MEDS: LEVOFLOXACIN 750 MG TAB PO SCH (14:33)
[2017-02-21] MEDS ORDERED: VANCOMYCIN INJ 1,500 MG in SODIUM CHLORID 0.9% 500 ML INJ 500 ML IV ONE (15:00)
--- NOTE | 2017-02-21 16:07 | RADRPT ---
EXAM DATE/TIME: 02/21/2017 14:53 [facility] COMPARISON: No previous studies available for comparison. INDICATIONS : Evaluate for obstruction. MEDICAL HISTORY : Hypertension. Heart attack. Hydrocephalus. Weakness. Diarrhea. Muscle stiffness. SURGICAL HISTORY : Pacemaker. THAW SHED HEATER TENDER shunt 2005. Vagus nerve stimulater. ENCOUNTER: Initial ACUITY: 1 day PAIN SCORE: 0/10 LOCATION: Bilateral flank MEASUREMENTS: RIGHT KIDNEY: 11.4 x 5.4 x 5.7 cm LEFT KIDNEY: 11.1 x 4.9 x 5.1 cm FINDINGS: RIGHT KIDNEY: Renal cortex is normal in thickness and echotexture. No hydronephrosis, stone, or mass. LEFT KIDNEY: Renal cortex is normal in thickness and echotexture. No hydronephrosis, stone, or mass. BLADDER: There is a posterior right base bladder diverticulum. CONCLUSION: Bladder diverticulum. Unremarkable kidneys. Jani Rasheed MD on February 21, 2017 at 16:05 Board Certified Radiologist. This report was verified electronically.
--- NOTE | 2017-02-21 20:59 | HHI.PR ---
Subjective Remarks Patient seen this morning around 10:30 AM. Says he is feeling all right. Denies any chest pain or shortness of breath. Denies any nausea or vomiting. Objective Vital Signs Date Time Temp Pulse Resp B/P Pulse Ox O2 Delivery O2 Flow Rate FiO2 02/21/17 20:43 21 02/21/17 17:01 97.8 88 20 147/84 99 02/21/17 12:05 97.8 84 20 126/74 99 02/21/17 09:15 93 21 02/21/17 08:57 94.3 75 20 129/75 99 02/21/17 06:00 97.9 80 20 104/59 93 02/21/17 01:35 97.4 78 20 107/57 96 02/20/17 22:10 Room Air 02/20/17 21:55 99.2 93 20 112/62 94 I/O 02/20/17 02/20/17 02/20/17 02/21/17 02/21/17 02/21/17 07:00 15:00 23:00 07:00 15:00 23:00 Intake Total 240 ml 200 ml 205 ml 1240 ml Output Total 1600 ml Balance 240 ml 200 ml 205 ml -360 ml Intake Oral 240 ml 1240 ml IV Total 200 ml 205 ml Output Urine Total 600 ml Stool Total 1000 ml # Voids 3 3 1 2 1 # Bowel Movements 1 3 1 2 1 Result Diagram: 02/21/1781902/21/17819 Objective Remarks GENERAL: patient sitting up on edge of bed. Appears comfortable. SKIN: Warm and dry. HEAD: Normocephalic. EYES: No scleral icterus. No injection or drainage. NECK: Supple, trachea midline. No JVD. CARDIOVASCULAR: Regular rate and rhythm without murmurs, gallops, or rubs. RESPIRATORY: Breath sounds equal bilaterally. No accessory muscle use. GASTROINTESTINAL: Abdomen soft, non-tender, nondistended. MUSCULOSKELETAL: No cyanosis, or edema. BACK: Nontender without obvious deformity. No CVA tenderness. A/P Assessment and Plan 02/21/17 White count today improved, 8.2. No fevers overnight. -Consult infectious disease for gram-positive bacteremia. Repeat cultures ordered. Ultrasound bladder positive for diverticulum. Appreciate infectious disease assistance. //History of hydrocephalus //ACCOUNTS PAYABLE ASSISTANT shunt (2005) //Status post fall-TBI? //Seizure disorder //Toxic encephalopathy //Epilepsy -Neurology followingDrGale Herndon, -02/18 CT brain without contrast-no acute disease, no midline shift -02/18 shunt studies-within normal limits -CTA neck-no cervical stenosis -Follow-up Lamictal level pending .Tegretol level subtherapeutic -UDS screen- negative tox screen -GCS 15, resolution of symptoms -EEG abnormal. Uncertain baseline, could be chronic. -Neurology following. Appreciate assistance. //Possible sepsis //Possible UTI. -Leukocytosis 19, tachycardia Fever / =102.8 -Workup so far negative. Blood cultures negative to date. Urine with mixed gram-positive barbi. -02/20. Started on Zosyn overnight. Repeat urinalysis still with white blood cells. -02/21 ultrasound positive for bladder diverticulum. -Follow up cultures. Continue to monitor. -Infectious disease following. Appreciate assistance. Continue with antibiotics. Levaquin Prophylaxis: GI Prophylaxis- Pepcid twice a day DVT Prophylaxis-- SCDs Discharge Planning when cleared by infectious disease. Jovan Guo MD Feb 21, 2017 20:59
[2017-02-22] VITALS (8 sets, daily range): BP systolic 109–150; BP diastolic 58–88; PULSE 67–83; RESP 18–20; TEMP 97.2–98.6; O2SAT 96–100
[2017-02-22] MEDS: VANCOMYCIN INJ 1,250 MG in SODIUM CHLOR 0.9% 250 ML INJ 250 ML IV SCH ×2 (02:34→12:54)
[2017-02-22] MEDS: SODIUM CHLORIDE 0.9% FLUSH 10 ML FLUSH IV FLUSH SCH ×3 (02:35→21:00)
[2017-02-22] MEDS: RESP: ALBUTEROL 2.5 MG/IPRATROPIUM 0.5 MG NEB (SCH) INH ×4 (04:00→21:05)
[2017-02-22] MEDS: CHLORHEXIDINE GLUCONATE 2 % 1 PACK (2 CLOTHS) TOP SCH (04:00)
[2017-02-22] MEDS: INSULIN ASPART SUPPLEMENTAL SCALE SQ SCH ×4 (07:00→21:00)
[2017-02-22] MEDS: DOCUSATE SODIUM 50 MG/SENNA 8.6 MG TAB PO SCH ×2 (09:08→21:00)
[2017-02-22] MEDS: lamoTRIgine 100 MG TAB PO SCH ×2 (09:08→20:59)
[2017-02-22] MEDS: FAMOTIDINE 20 MG/2 ML VIAL IV PUSH SCH ×2 (09:09→21:00)
[2017-02-22] MEDS: LEVOFLOXACIN 750 MG TAB PO SCH (16:14)
--- NOTE | 2017-02-22 22:29 | HHI.PR ---
Subjective Remarks Patient seen this morning. Says he is feeling all right. Denies any chest pain or shortness of breath. Denies any dysuria. Objective Vital Signs Date Time Temp Pulse Resp B/P Pulse Ox O2 Delivery O2 Flow Rate FiO2 02/22/17 21:06 21 02/22/17 20:00 98.1 83 20 129/75 96 02/22/17 16:00 97.2 72 18 127/88 100 02/22/17 12:00 97.7 69 18 150/81 100 02/22/17 09:49 98 21 02/22/17 08:00 98.6 72 18 109/61 97 02/22/17 07:15 67 02/22/17 07:00 Room Air 02/22/17 04:00 98.0 68 20 122/58 97 02/22/17 00:00 98.1 70 20 121/68 97 I/O 02/21/17 02/21/17 02/21/17 02/22/17 02/22/17 02/22/17 06:59 14:59 22:59 06:59 14:59 22:59 Intake Total 205 ml 1480 ml 480 ml Output Total 1600 ml 210 ml Balance 205 ml -120 ml 270 ml Intake Oral 1480 ml 480 ml IV Total 205 ml Output Urine Total 600 ml 210 ml Stool Total 1000 ml # Voids 2 2 3 6 3 # Bowel Movements 2 1 6 Result Diagram: 02/21/17 0820 02/22/17 1101 Objective Remarks GENERAL: patient sitting up in bed. Appears comfortable. SKIN: Warm and dry. HEAD: Normocephalic. EYES: No scleral icterus. No injection or drainage. NECK: Supple, trachea midline. No JVD. CARDIOVASCULAR: Regular rate and rhythm without murmurs, gallops, or rubs. RESPIRATORY: Breath sounds equal bilaterally. No accessory muscle use. GASTROINTESTINAL: Abdomen soft, non-tender, nondistended. MUSCULOSKELETAL: No cyanosis, or edema. BACK: Nontender without obvious deformity. No CVA tenderness. A/P Assessment and Plan 02/22/17 Bladder diverticulum. Follow-up urine cultures. Continue antibiotics. Expect the patient may benefit from surgery after course of antibiotics. //History of hydrocephalus //HABILITATION ASSISTANT shunt (2005) //Status post fall-TBI? //Seizure disorder //Toxic encephalopathy //Epilepsy -Neurology followingDrGale Herndon, -02/18 CT brain without contrast-no acute disease, no midline shift -02/18 shunt studies-within normal limits -CTA neck-no cervical stenosis -Follow-up Lamictal level pending .Tegretol level subtherapeutic -UDS screen- negative tox screen -GCS 15, resolution of symptoms -EEG abnormal. Uncertain baseline, could be chronic. -Neurology following. Appreciate assistance. //Possible sepsis //Possible UTI. -Leukocytosis 19, tachycardia Fever 02/19 =102.8 -Workup so far negative. Blood cultures negative to date. Urine with mixed gram-positive barbi. -02/20. Started on Zosyn overnight. Repeat urinalysis still with white blood cells. -02/21 ultrasound positive for bladder diverticulum. -Follow up cultures. Continue to monitor. -Infectious disease following. Appreciate assistance. Continue with antibiotics. Levaquin Prophylaxis: GI Prophylaxis- Pepcid twice a day DVT Prophylaxis-- SCDs Discharge Planning when cleared by infectious disease. Jovan Guo MD Feb 22, 2017 22:29
[2017-02-23 00:30] VITALS: BP 96/56; PULSE 70; RESP 17; TEMP 98.1; O2SAT 98
[2017-02-23] MEDS: VANCOMYCIN INJ 1,250 MG in SODIUM CHLOR 0.9% 250 ML INJ 250 ML IV SCH (01:32)
[2017-02-23] MEDS ORDERED: PHARMACY ORDERED LAB ONE (01:45)
[2017-02-23] MEDS: CHLORHEXIDINE GLUCONATE 2 % 1 PACK (2 CLOTHS) TOP SCH (04:00)
[2017-02-23 04:30] VITALS: BP 113/68; PULSE 69; RESP 17; TEMP 98; O2SAT 98
[2017-02-23] MEDS: INSULIN ASPART SUPPLEMENTAL SCALE SQ SCH ×2 (06:42→11:00)
[2017-02-23 08:00] VITALS: BP 126/71; PULSE 71; RESP 20; TEMP 97.3; O2SAT 98
[2017-02-23 09:45] VITALS: O2SAT 98
[2017-02-23] MEDS: DOCUSATE SODIUM 50 MG/SENNA 8.6 MG TAB PO SCH (09:45)
[2017-02-23] MEDS: FAMOTIDINE 20 MG/2 ML VIAL IV PUSH SCH (09:45)
[2017-02-23] MEDS: lamoTRIgine 100 MG TAB PO SCH (09:45)
[2017-02-23] MEDS: SODIUM CHLORIDE 0.9% FLUSH 10 ML FLUSH IV FLUSH SCH (09:46)
[2017-02-23 10:22] LABS: HEMATOCRIT 39.6 % (39.0-51.0); MEAN CELL VOLUME 90.5 FL (80.0-100.0); MEAN CORPUSCULAR HEMOGLOBIN 31.6 PG (27.0-34.0); MEAN CORPUSCULAR HGB CONC 34.9 % (32.0-36.0); RED BLOOD COUNT 4.38 MIL/MM3 (4.50-5.90); RED CELL DISTRIBUTION WIDTH 13.3 % (11.6-17.2); WHITE BLOOD COUNT 7.5 TH/MM3 (4.0-11.0)
[2017-02-23 10:23] LABS: AUTOMATED NEUTROPHIL # 5.5 TH/MM3 (1.8-7.7); BASOPHIL % 0.6 % (0.0-2.0); EOSINOPHIL # 0.2 TH/MM3 (0-0.4); EOSINOPHIL % 2.2 % (0.0-4.0); HEMO FLAGS DIFF FINAL; LYMPH % 16.3 % (9.0-44.0); LYMPHOCYTE # 1.2 TH/MM3 (1.0-4.8); MONO % 8.3 % (0.0-8.0); NEUT % 72.6 % (16.0-70.0); PLATELET COUNT 203 TH/MM3 (150-450)
--- NOTE | 2017-02-23 10:35 | HHI.IDPN ---
Subjective Subjective Remarks Patient is a 51-year-old male, with known history of seizure, hydrocephalus, has a ENVIRONMENTAL MARKETER shunt, initially presented to [place] emergency room on February 18 after he fell. He apparently hit his head, but there was no loss of consciousness. He was having pain on the side of the head that hit the ground. Patient underwent CT of the head, and CT of the cervical spine which were both unremarkable. He also underwent evaluation of his shunt and there was no problem with the function of the shunt. He was sent home, and apparently became unresponsive, so EMS was called and he was taken to the hospital for further evaluation and treatment. Patient has had further imaging studies and they all came back negative. Neurology saw the patient , and his seizure medications were subtherapeutic. Was felt that he could probably have had a seizure episode and that's why he became unresponsive. Patient had 2 blood cultures done on February 18. He had one fever on February 19. Repeat blood cultures were done on February 20. 1 out of the 2 blood cultures from February 18 is growing gram-positive cocci in chains. Blood cultures from February 20 are negative. Patient has been afebrile since admission. He has not had any repeat episode of unresponsiveness. Also on admission he had a positive urinalysis. [place] catheter was apparently tried and was not successful, but patient has not been having any urinary complaints. Infectious disease consultation has been requested to evaluate the patient who had an episode of fever, and one positive blood culture. Allergies: Coded Allergies: Cat Dander (Verified Adverse Reaction, Mild, Sneezing, 02/18/17) Dust (Verified Adverse Reaction, Mild, Sneezing, 02/18/17) Objective . Vital Signs Date Time Temp Pulse Resp B/P Pulse Ox O2 Delivery O2 Flow Rate FiO2 02/23/17 09:45 98 21 02/23/17 08:00 97.3 71 20 126/71 98 02/23/17 04:30 98.0 69 17 113/68 98 02/23/17 00:30 98.1 70 17 96/56 98 02/22/17 21:06 21 02/22/17 20:00 98.1 83 20 129/75 96 02/22/17 16:00 97.2 72 18 127/88 100 02/22/17 12:00 97.7 69 18 150/81 100 802/22/17 02/23/17 15:00 23:00 07:00 Intake Total 480 ml 120 ml Output Total 210 ml Balance 270 ml 120 ml Intake Oral 480 ml 120 ml Output Urine Total 210 ml # Voids 6 3 2 # Bowel Movements 6 . Laboratory Tests Test 02/23/17 08:53 White Blood Count 7.5 TH/MM3 Red Blood Count 4.38 MIL/MM3 Hemoglobin 13.8 GM/DL Hematocrit 39.6 % Mean Corpuscular Volume 90.5 FL Mean Corpuscular Hemoglobin 31.6 PG Mean Corpuscular Hemoglobin 34.9 % Concent Red Cell Distribution Width 13.3 % Platelet Count 203 TH/MM3 Mean Platelet Volume 8.5 FL Neutrophils (%) (Auto) 72.6 % Lymphocytes (%) (Auto) 16.3 % Monocytes (%) (Auto) 8.3 % Eosinophils (%) (Auto) 2.2 % Basophils (%) (Auto) 0.6 % Neutrophils # (Auto) 5.5 TH/MM3 Lymphocytes # (Auto) 1.2 TH/MM3 Monocytes # (Auto) 0.6 TH/MM3 Eosinophils # (Auto) 0.2 TH/MM3 Basophils # (Auto) 0.0 TH/MM3 CBC Comment DIFF FINAL Differential Comment Laboratory Tests Test 02/22/17 11:01 Creatinine 0.78 MG/DL Estimat Glomerular Filtration 106 ML/MIN Rate Selene Akhtar MD Feb 23, 2017 10:35
--- NOTE | 2017-02-23 10:53 | HHI.IDPN ---
Subjective Subjective Remarks Patient is a 51-year-old male, with known history of seizure, hydrocephalus, has a HUMAN RESOURCES HR REPRESENTATIVE shunt, initially presented to [place] emergency room on February 18 after he fell. He apparently hit his head, but there was no loss of consciousness. He was having pain on the side of the head that hit the ground. Patient underwent CT of the head, and CT of the cervical spine which were both unremarkable. He also underwent evaluation of his shunt and there was no problem with the function of the shunt. He was sent home, and apparently became unresponsive, so EMS was called and he was taken to the hospital for further evaluation and treatment. Patient has had further imaging studies and they all came back negative. Neurology saw the patient , and his seizure medications were subtherapeutic. Was felt that he could probably have had a seizure episode and that's why he became unresponsive. Patient had 2 blood cultures done on February 18. He had one fever on February 19. Repeat blood cultures were done on February 20. 1 out of the 2 blood cultures from February 18 is growing gram-positive cocci in chains. Blood cultures from February 20 are negative. Patient has been afebrile since admission. He has not had any repeat episode of unresponsiveness. Also on admission he had a positive urinalysis. [place] catheter was apparently tried and was not successful, but patient has not been having any urinary complaints. Infectious disease consultation has been requested to evaluate the patient who had an episode of fever, and one positive blood culture. Notes reviewed NO fever No new complaints Repeat UA with pyuria but better No new (+) BC ONe BC (+) but not growing Antibiotics Vancomycin Levaquin Lines PIV Past Medical History Hydrocephalus Seizure, recurrent Left-sided weakness Vagal nerve stimulator ? Cerebral palsy Past Surgical History HUMAN RESOURCES HR REPRESENTATIVE shunt placement, multiple revisions, last revision looks like was in 2006, and at that time the old shunt was left in place, and a new HUMAN RESOURCES HR REPRESENTATIVE shunt was placed Vagal nerve stimulator for control of his seizures Allergies: Coded Allergies: Cat Dander (Verified Adverse Reaction, Mild, Sneezing, 02/18/17) Dust (Verified Adverse Reaction, Mild, Sneezing, 02/18/17) Objective . Vital Signs Date Time Temp Pulse Resp B/P Pulse Ox O2 Delivery O2 Flow Rate FiO2 02/23/17 09:45 98 21 02/23/17 08:00 97.3 71 20 126/71 98 02/23/17 04:30 98.0 69 17 113/68 98 02/23/17 00:30 98.1 70 17 96/56 98 02/22/17 21:06 21 02/22/17 20:00 98.1 83 20 129/75 96 02/22/17 16:00 97.2 72 18 127/88 100 02/22/17 12:00 97.7 69 18 150/81 100 02/22/17 02/22/17 02/23/17 15:00 23:00 07:00 Intake Total 480 ml 120 ml Output Total 210 ml Balance 270 ml 120 ml Intake Oral 480 ml 120 ml Output Urine Total 210 ml # Voids 6 3 2 # Bowel Movements 6 . Laboratory Tests Test 02/23/17 08:53 White Blood Count 7.5 TH/MM3 Red Blood Count 4.38 MIL/MM3 Hemoglobin 13.8 GM/DL Hematocrit 39.6 % Mean Corpuscular Volume 90.5 FL Mean Corpuscular Hemoglobin 31.6 PG Mean Corpuscular Hemoglobin 34.9 % Concent Red Cell Distribution Width 13.3 % Platelet Count 203 TH/MM3 Mean Platelet Volume 8.5 FL Neutrophils (%) (Auto) 72.6 % Lymphocytes (%) (Auto) 16.3 % Monocytes (%) (Auto) 8.3 % Eosinophils (%) (Auto) 2.2 % Basophils (%) (Auto) 0.6 % Neutrophils # (Auto) 5.5 TH/MM3 Lymphocytes # (Auto) 1.2 TH/MM3 Monocytes # (Auto) 0.6 TH/MM3 Eosinophils # (Auto) 0.2 TH/MM3 Basophils # (Auto) 0.0 TH/MM3 CBC Comment DIFF FINAL Differential Comment Laboratory Tests Test 02/22/17 11:01 Creatinine 0.78 MG/DL Estimat Glomerular Filtration 106 ML/MIN Rate Physical Exam GENERAL: awake and alert, not in respiratory distress. SKIN: Warm and dry. No generalized rash, no ecchymoses and no evidence of embolic lesions. HEAD: Atraumatic. Normocephalic. No temporal wasting, or tenderness. HUMAN RESOURCES HR REPRESENTATIVE shunt in the head unremarkable EYES: [place] conjunctiva. No petechia or hemorrhage. Pupils equal, round and reactive to light. Extraocular movements full and intact. No scleral icterus. No injection or drainage. Has left facial weakness EARS, NOSE AND THROAT: Nose without bleeding or purulent nasal discharge. No sinus tenderness. Mucous membranes pink and moist. No oral lesions noted. No exudate. No oral thrush. NECK: Trachea midline. Supple and not tender, no meningeal signs CARDIOVASCULAR: Regular rate and rhythm. No murmurs, rubs or gallops heard. Vagal stimulator generator on L side upper chest with no evidence of infection RESPIRATORY: Clear to auscultation. Breath sounds equal bilaterally. No rales , wheezing or rhonchi ABDOMEN: Soft, non-tender, nondistended. Bowel sounds present and normoactive. No guarding. No rebound. No organomegaly. Distal cath site unremarkable. EXTREMITIES: No clubbing, cyanosis, or edema. No joint effusion, has good ROM. No calf tenderness. Well perfused and warm. NEUROLOGICAL: Awake and alert. Cranial nerves grossly intact. LUE side spastic , and weak, wit contractures PSYCHIATRIC: Normal affect, calm and cooperative. LINE: No evidence of infection Laboratory Assessment & Plan Remarks IMPRESSION One (+) BC with GPC in chains, ?significance, grew on the 3rd day - prob contaminant, not growing, no new (+) BC One episode of fever (+) UA, has diverticulum in bladder, ?causing pyuria Possible seizure as cause of unresponsiveness S/P HUMAN RESOURCES HR REPRESENTATIVE shunt replacement 2006 Has vagal nerve stimulator Known chronic SZ disorder RECOMMENDATION Give 14 days po Levaquin for covergae Stop Vanco He has fup with urology when he gets D/C He can be D/C from ID standpoint Explained plan to patient D/W Selene Crowder MD Feb 23, 2017 10:53
[2017-02-23] MEDS ORDERED: LEVA750T9 PO (10:56)
[2017-02-23 10:57] LABS: BICARBONATE 22.5 MEQ/L (21.0-32.0); MAGNESIUM 2.2 MG/DL (1.5-2.5); POTASSIUM 3.9 MEQ/L (3.5-5.1)
[2017-02-23] MEDS ORDERED: VANCOMYCIN INJ 1,250 MG in SODIUM CHLOR 0.9% 250 ML INJ 250 ML IV SCH (12:00)
[2017-02-24] MEDS ORDERED: PHARMACY ORDERED LAB ONE (03:45)
--- NOTE | 2017-02-26 01:10 | HHI.DS ---
Discharge Summary Admission Date Feb 18, 2017 at 17:21 Discharge Date: Feb 23, 2017 Admitting Diagnosis altered mental status. History of seizure. CBC/BMP: 02/23/17 0853 02/23/17 0853 Significant Findings Laboratory Tests Test 02/23/17 02/23/17 01:35 08:53 Vancomycin Level Trough 10.5 MCG/ML (5.0-10.0) Red Blood Count 4.38 MIL/MM3 (4.50-5.90) Neutrophils (%) (Auto) 72.6 % (16.0-70.0) Monocytes (%) (Auto) 8.3 % (0.0-8.0) Sodium Level 135 MEQ/L (136-145) Albumin 3.2 GM/DL (3.4-5.0) Imaging Last Impressions Renal Ultrasound 02/21/17 0000 Signed Impressions: Service Date/Time: Tuesday, February 21, 2017 14:53 - CONCLUSION: Bladder diverticulum. Unremarkable kidneys. Jani Rasheed MD Chest X-Ray 02/19/17 0000 Signed Impressions: Service Date/Time: Monday, February 20, 2017 00:16 - CONCLUSION: No acute disease. Javier Campos MD Head CT 02/18/17 1418 Signed Impressions: Service Date/Time: Saturday, February 18, 2017 15:39 - CONCLUSION: 1. No acute findings. Stable ventricular size. Rashid Hogue MD Shunt Study (Imaging) 02/18/17 0000 Signed Impressions: Service Date/Time: Saturday, February 18, 2017 15:07 - CONCLUSION: Intact shunt. Jani Arias MD Neck CTA 02/18/17 0000 Signed Impressions: Service Date/Time: Saturday, February 18, 2017 23:11 - CONCLUSION: 1. No evidence for hemodynamically significant stenosis. Javier Campos MD Head CTA 02/18/17 0000 Signed Impressions: Service Date/Time: Saturday, February 18, 2017 23:11 - CONCLUSION: 1. Left proximal ICA atherosclerosis with associated stenosis. 2. No intracranial stenosis or aneurysm. Javier Campos MD Hospital Course 02/22/17 Bladder diverticulum. Follow-up urine cultures. Continue antibiotics. Expect the patient may benefit from surgery after course of antibiotics. //History of hydrocephalus //[employer] shunt (2005) //Status post fall-TBI? //Seizure disorder //Toxic encephalopathy //Epilepsy -Neurology followingDr. Yanick, -02/18 CT brain without contrast-no acute disease, no midline shift -02/18 shunt studies-within normal limits -CTA neck-no cervical stenosis -Follow-up Lamictal level pending .Tegretol level subtherapeutic -UDS screen- negative tox screen -GCS 15, resolution of symptoms -EEG abnormal. Uncertain baseline, could be chronic. -Neurology following. Appreciate assistance. //Possible sepsis //Possible UTI. -Leukocytosis 19, tachycardia Fever / =102.8 -Workup so far negative. Blood cultures negative to date. Urine with mixed gram-positive barbi. -02/20. Started on Zosyn overnight. Repeat urinalysis still with white blood cells. -02/21 ultrasound positive for bladder diverticulum. -Follow up cultures. Continue to monitor. -Infectious disease following. Appreciate assistance. Continue with antibiotics. Levaquin Prophylaxis: GI Prophylaxis- Pepcid twice a day DVT Prophylaxis-- SCDs Discharge Planning when cleared by infectious disease. Pt Condition on Discharge: Good Discharge Disposition: Discharge Home Discharge Time: > 30 minutes Discharge Instructions DIET: Follow Instructions for: As Tolerated, No Restrictions Activities you can perform: Regular-No Restrictions Follow up Referrals: PCP Follow-up - 1 Week Urology - 1 Week with Rodrigo Turner MD New Medications: Levofloxacin (Levaquin) 750 Mg Tablet 750 MG PO DAILY@15 infection Days 14 TAB Continued Medications: Lamotrigine (Lamictal) 200 Mg Tab 200 MG PO BID Control Seizures #60 Ref 0 TAB Lamotrigine (Lamictal) 25 Mg Tab 50 MG PO DAILY@0600 Control Seizures #30 Ref 0 TAB Jovan Guo MD Feb 26, 2017 01:10
== END 2017-02-23 14:13 | disposition home or self-care (01) | DRG 698 ==
LOC: NEPC 14:00 → NEDA 17:21 → N03A 23:23 → N05B 02-19 20:14
PROVIDERS: ADMIT Internal Medicine; ATTEND Internal Medicine
DX: N32.3 Diverticulum of bladder (principal); G93.49 Other encephalopathy; N39.0 Urinary tract infection, site not specified; I10 Essential (primary) hypertension; G40.909 Epilepsy, unspecified, not intractable, without status epilepticus; Z98.2 Presence of cerebrospinal fluid drainage device; G80.9 Cerebral palsy, unspecified; W01.0XXA Fall on same level from slipping, tripping and stumbling without subsequent striking against object, initial encounter; R41.82 Altered mental status, unspecified
CPT/HCPCS: 36600; 51702; 70250; 70450; 70496; 70498; 71010; 72040; 74000; 76775; 76937; 80048; 80053; 80069; 80156; 80175; 80202; 80307; 81001; 82533; 82550; 82552; 82565; 82805; 82948; 83605; 83735; 84100; 84439; 84443; 84484; 85025; 85610; 85730; 87040; 87086; 87205; 93005; 94640; 94664; 95819; J2543; J3370; J7030; J7040; J7050; Q9967

== ENCOUNTER 2017-03-17 18:30 | Emergency (ER) | payer MEDICARE, OTHER ==
[~2017-03-17 18:30] MED LIST changes: -IBUP-232 PO; +LEVA750T9 PO; -TEGR200T PO
[2017-03-17 18:37] VITALS: BP 148/85; PULSE 80; RESP 16; TEMP 98.4; O2SAT 98
--- NOTE | 2017-03-17 19:27 | PD ---
HPI Chief Complaint: Fall Time Seen by Provider: 19:24 Travel History International Travel<30 days: No Contact w/Intl Traveler<30days: No Traveled to known affect area: No History of Present Illness HPI 51-year-old male presents to the emergency department after he had a mechanical fall hitting the left side of his face on a [place] at [employer]. Patient denies loss of consciousness. Patient is not anticoagulated. On exam patient has mild tenderness of the left mandible. Patient denies headache, visual changes, neck pain. Patient denies any other injury. Symptom severity is mild. No aggravating or alleviating factors. PFSH Past Medical History Hx Anticoagulant Therapy: No Arthritis: No Asthma: No Blood Disorders: No Heart Rhythm Problems: Yes (FIRST DEGREE HEART BLOCK) Cancer: No Cardiovascular Problems: Yes Chemotherapy: No Chest Pain: Yes COPD: No Cerebrovascular Accident: No Diabetes: No Diminished Hearing: No Endocrine: No Genitourinary: No Headaches: Yes Hypertension: Yes Immune Disorder: No Musculoskeletal: Yes (left arm contracted) Neurologic: Yes (HYDROCEPHALUS) Psychiatric: No Reproductive: No Respiratory: No Radiation Therapy: No Seizures: Yes Sleep Apnea: No Past Surgical History Abdominal Surgery: No AICD: No Arteriovenous Shunt: No Body Medical Devices: VAGAL NERVE STIMULATOR Cardiac Surgery: Yes Genitourinary Surgery: No Gynecologic Surgery: No Hysterectomy: No Insulin Pump: No Joint Replacement: No Neurologic Surgery: Yes (2005 [employer] SHUNT, jun 2005-VAGUS NERVE STIMULATOR) Pacemaker: Yes Thoracic Surgery: No Other Surgery: Yes (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, HEEL CORD LENGHENING) Social History Alcohol Use: No Tobacco Use: No Substance Use: No Allergies-Medications (Allergen,Severity, Reaction): Coded Allergies: cat dander (Unverified Adverse Reaction, Mild, Sneezing, 02/27/17) house dust (Unverified Adverse Reaction, Mild, Sneezing, 02/27/17) Reported Meds & Prescriptions Reported Meds & Active Scripts Active Reported Lamictal (Lamotrigine) 25 Mg Tab 50 Mg PO DAILY@0600 Lamictal (Lamotrigine) 200 Mg Tab 200 Mg PO BID Review of Systems Except as stated in HPI: all other systems reviewed are Neg General / Constitutional: No: Fever Eyes: No: Visual changes HENT: No: Headaches Cardiovascular: No: Chest Pain or Discomfort Physical Exam Narrative GENERAL: Well-nourished, well-developed patient. SKIN: Focused skin assessment warm/dry. HEAD: Normocephalic. Atraumatic EYES: No scleral icterus. No injection or drainage. Pupils equal round and reactive 3 mm. EOMs intact. ENT: Mild tenderness over the left mandible. No malocclusion. No trismus. No dental injury. Patient able to fully open and close the mouth without difficulty. NECK: Supple, trachea midline. No JVD or lymphadenopathy. No cervical midline tenderness CARDIOVASCULAR: Regular rate and rhythm without murmurs, gallops, or rubs. RESPIRATORY: Breath sounds equal bilaterally. No accessory muscle use. GASTROINTESTINAL: Abdomen soft, non-tender, nondistended. MUSCULOSKELETAL: No cyanosis, or edema. NEUROLOGICAL: Awake and alert. GCS 15. Motor and sensory grossly within normal limits. Normal speech. Data Data Last Documented VS Vital Signs Date Time Temp Pulse Resp B/P (MAP) Pulse Ox O2 Delivery O2 Flow Rate FiO2 03/17/17 18:37 98.4 80 16 148/85 (106) 98 MDM Medical Decision Making Medical Screen Exam Complete: Yes Emergency Medical Condition: Yes Differential Diagnosis Facial contusion, mandible fracture, mandible dislocation Narrative Course 51-year-old male presents to the emergency department after he had a mechanical fall hitting the left side of his face on a [place] at [employer]. Patient denies loss of consciousness. Patient is not anticoagulated. On exam patient has mild tenderness of the left mandible. There is no malocclusion. There is no trismus. There is no dental injury. There is no swelling or ecchymosis to the face. Patient has no other injuries. Patient will be treated for facial contusion. Diagnosis Primary Impression: Facial contusion Qualified Codes: S00.83XA - Contusion of other part of head, initial encounter Referrals: Primary Care Physician Additional Instructions: Take [id number] Motrin 600-800 mg every 6-8 hours as needed for pain. Apply ice to the area 20 minutes on 20 minutes off several times per day. Follow-up with her regular doctor. Disposition: 01 DISCHARGE HOME Condition: Stable Farzana Valdez Mar 17, 2017 19:27
== END 2017-03-17 19:55 | disposition home or self-care (01) ==
LOC: PHEFT 18:30
DX: S00.83XA Contusion of other part of head, initial encounter (principal); I10 Essential (primary) hypertension; Z86.79 Personal history of other diseases of the circulatory system; Z87.39 Personal history of other diseases of the musculoskeletal system and connective tissue; Z86.69 Personal history of other diseases of the nervous system and sense organs; W18.39XA Other fall on same level, initial encounter; Y92.512 Supermarket, store or market as the place of occurrence of the external cause
CPT/HCPCS: 99283